=== PATIENT | female | born 1985 | race Caucasian/White ===

== ENCOUNTER → 2016-09-17 | Outpatient (CLI) | payer OTHER ==
[~2016-09-17] MED LIST: OXYC1TAB23 PO; PROT1TAB2 PO; VICO7.5T11 PO
--- NOTE | 2016-09-18 04:20 | REP ---
Clinical: Infertility . Technique: Transabdominal pelvic ultrasound followed by transvaginal examination for better evaluation of the endometrium and adnexa. Findings: Bladder is unremarkable and measures 7.3 x 7.8 x 4.6 cm . Normal anteverted uterus measures 8.5 x 3.1 x 3.9 cm. The endometrial complex measures 7.3 mm thickness. No discrete uterine or endometrial abnormalities are appreciated. Bilateral ovaries are normal in appearance. Right ovary measures 3.6 x 3.4 x 3.2 cm with 3.5 cm complex likely physiologic cyst. Left ovary measures 3.2 x 1.8 x 1.9 cm with multiple subcentimeter follicles. No pelvic fluid or adnexal mass lesion. Impression: 1. Essentially normal pelvic ultrasound. 3.5 cm complex cyst in the right ovary likely physiologic. Signed by Lane Rollins MD 09/18/2016 04:11 A
== END ==
LOC: M WHC 13:08
PROVIDERS: ATTEND Family Medicine
DX: Z31.69 Encounter for other general counseling and advice on procreation (principal); N83.201 Unspecified ovarian cyst, right side

== ENCOUNTER → 2016-12-24 | Outpatient (CLI) | payer OTHER ==
--- NOTE | 2016-12-25 03:39 | REP ---
Clinical: Upper abdominal and generalized abdominal pain. Technique: Bowles scale ultrasound using curved array transducer. Findings: The liver suggest mild fatty infiltration without focal hepatic lesion identified. The spleen and pancreas are normal in contour, size, and echogenicity without focal splenic or pancreatic lesions identified. The patient is status post cholecystectomy. No biliary ductal dilatation is appreciated, and the common bile duct measures 4.9 mm diameter. The bilateral kidneys are normal in reniform shape without hydronephrosis. Right kidney measures 12.1 x 7.2 x 3.5 cm. Left kidney measures 13.2 x 5.7 x 4.1 cm. No ascites. Visualized portions of the abdominal aorta normal. Impression: Mild fatty infiltration to the liver cannot be excluded. Prior cholecystectomy. Otherwise normal complete abdominal ultrasound. Signed by Lane Rollins MD 12/25/2016 03:31 A
== END ==
LOC: M RAD 07:02
PROVIDERS: ATTEND Physician Assistant Medical
DX: R10.10 Upper abdominal pain, unspecified (principal)

== ENCOUNTER → 2017-01-03 | Outpatient (REF) | payer OTHER | LOC: M LAB REF 19:52 | PROVIDERS: ATTEND Physician Assistant Medical | DX: R10.12 Left upper quadrant pain (principal) ==

== ENCOUNTER → 2017-01-15 | Outpatient (CLI) | payer OTHER ==
[~2017-01-15] MED LIST changes: +E-Z-GAS II EFFERVESCENT PACKET (SODIUM BICARB./CITRIC ACID/SIMETHICONE) As Ordered ONE; +E-Z-HD 98% w/w 340GM SUSP BTL As Ordered ONE; +E-Z-PAQUE 96% w/w SUSP 176GM BTL As Ordered ONE
--- NOTE | 2017-01-15 19:07 | REP ---
UPPER GI SMALL BOWEL FOLLOW THROUGH: The procedure was performed by JERMAINE Tsai under the direct supervision of Dr. Loya. All imaging was reviewed with Dr. Loya prior to dictation. The patient was able to ingest liquid barium and air in a quantity sufficient to procedure a double contrast examination. The oral and pharyngeal stages of deglutition appeared unremarkable. Esophageal transport was prompt and efficient. There is no evidence of esophagitis, stricture, or mucosal ring. A hiatal hernia was seen on imaging. Gastroesophageal reflux to approximately the level of the mala was observed during this exam. The stomach jackson were normally outlined. The rugal folds were smooth and regular. There was no evidence of gastritis, neoplasm or ulcerative disease. The duodenal jackson were normally outlined. There was no evidence of duodenitis, peptic ulcer disease or neoplasm. The visualized portion of the proximal small bowel was normal in course and caliber. Additional liquid barium was given at the end of the examination in order to perform a small bowel follow through. During fluoroscopy gentle palpation of the small bowel loops showed them to be freely movable and pliable without evidence of fixed or angulated loop. The small bowel mucosal pattern was normal in course and caliber. There was no transition to suggest a partial small bowel obstruction. Spot filming of the terminal ileum showed it to be within normal limits. IMPRESSION: Double contrast upper GI examination showing reflux to approximately the level of the mala. A hiatal hernia was also seen. Negative small bowel follow through. Fluoroscopy time was 3 minutes and 46 seconds. Reviewed by JERMAINE Tran 01/16/2017 05:36 PEdited and Signed by Hemanth Loya MD 01/17/2017 08:51 A
== END ==
LOC: M RAD 09:26
PROVIDERS: ATTEND Physician Assistant Medical
DX: R10.13 Epigastric pain (principal)

== ENCOUNTER → 2017-01-20 | Outpatient (CLI) | payer OTHER ==
[~2017-01-20] MED LIST changes: -E-Z-GAS II EFFERVESCENT PACKET (SODIUM BICARB./CITRIC ACID/SIMETHICONE) As Ordered ONE; -E-Z-HD 98% w/w 340GM SUSP BTL As Ordered ONE; -E-Z-PAQUE 96% w/w SUSP 176GM BTL As Ordered ONE
--- NOTE | 2017-01-21 09:11 | REP ---
RIGHT WRIST, FOUR VIEWS: HISTORY: Contusion. There is no acute fracture or dislocation. The joint spaces are normal in appearance. IMPRESSION: There is no acute fracture or dislocation. Signed by Zaheer Ruelas MD 01/21/2017 09:28 A
== END ==
LOC: M ADAMS 14:38
PROVIDERS: ATTEND Physician Assistant Medical
DX: S60.221A Contusion of right hand, initial encounter (principal); X58.XXXA Exposure to other specified factors, initial encounter; Y93.9 Activity, unspecified; Y92.9 Unspecified place or not applicable; Y99.8 Other external cause status

== ENCOUNTER 2017-07-26 06:48 | Day surgery (SDC) | payer OTHER ==
[~2017-07-26 06:48] MED LIST changes: -OXYC1TAB23 PO; +PROPOFOL 200 MG/20 ML VIAL As Ordered; -PROT1TAB2 PO; -VICO7.5T11 PO
[2017-07-26] MEDS: NS 1,000 ML IV (07:15)
[2017-07-26] MEDS ORDERED: LIDOCAINE 2% INJ 100 MG/5 ML SDV (FOR ANES.) As Ordered (07:57)
== END 2017-07-26 08:32 | disposition home or self-care (01) ==
LOC: M OPP 06:48
DX: R10.13 Epigastric pain (principal); K22.8 Other specified diseases of esophagus; K29.70 Gastritis, unspecified, without bleeding; K44.9 Diaphragmatic hernia without obstruction or gangrene; R19.7 Diarrhea, unspecified; K59.00 Constipation, unspecified; K21.9 Gastro-esophageal reflux disease without esophagitis; R12 Heartburn; R11.2 Nausea with vomiting, unspecified; F41.0 Panic disorder [episodic paroxysmal anxiety]; N80.9 Endometriosis, unspecified; F17.210 Nicotine dependence, cigarettes, uncomplicated; Z79.899 Other long term (current) drug therapy; Z80.8 Family history of malignant neoplasm of other organs or systems
CPT/HCPCS: 43239

== ENCOUNTER → 2017-09-14 | Outpatient (CLI) | payer OTHER | LOC: M ADAMS 11:02 | DX: M54.2 Cervicalgia (principal); M77.50 Other enthesopathy of unspecified foot and ankle | CPT/HCPCS: 72050 ==

== ENCOUNTER → 2017-10-15 | Outpatient (CLI) | payer OTHER | LOC: M ADAMS 13:52 | DX: M25.512 Pain in left shoulder (principal) | CPT/HCPCS: 73030 ==

== ENCOUNTER → 2017-12-06 | Outpatient (CLI) | payer OTHER | LOC: M PLARAD 10:27 | DX: M50.322 Other cervical disc degeneration at C5-C6 level (principal); M54.12 Radiculopathy, cervical region | CPT/HCPCS: 72141 ==

== ENCOUNTER 2017-12-23 18:00 | Emergency (ER) | payer OTHER ==
[2017-12-23] MEDS: NORCO 5/325MG TABLET (BULK FOR ED) PO (20:00)
== END 2017-12-23 20:10 | disposition home or self-care (01) ==
LOC: M ED 18:00
DX: S49.92XA Unspecified injury of left shoulder and upper arm, initial encounter (principal); W22.8XXA Striking against or struck by other objects, initial encounter; Y92.89 Other specified places as the place of occurrence of the external cause; G43.909 Migraine, unspecified, not intractable, without status migrainosus; K21.9 Gastro-esophageal reflux disease without esophagitis; M54.9 Dorsalgia, unspecified; F41.9 Anxiety disorder, unspecified; F32.9 Major depressive disorder, single episode, unspecified; F17.200 Nicotine dependence, unspecified, uncomplicated; Z79.899 Other long term (current) drug therapy
CPT/HCPCS: 73000

== ENCOUNTER → 2018-01-07 | Outpatient (CLI) | payer OTHER | LOC: M PAIN 13:15 | DX: G89.29 Other chronic pain (principal); M54.12 Radiculopathy, cervical region; M25.512 Pain in left shoulder; M50.222 Other cervical disc displacement at C5-C6 level; K21.9 Gastro-esophageal reflux disease without esophagitis; F32.9 Major depressive disorder, single episode, unspecified; F41.0 Panic disorder [episodic paroxysmal anxiety]; K44.9 Diaphragmatic hernia without obstruction or gangrene; Z79.899 Other long term (current) drug therapy; Z90.49 Acquired absence of other specified parts of digestive tract; Z87.891 Personal history of nicotine dependence | CPT/HCPCS: G0463 ==

== ENCOUNTER → 2018-04-11 | Outpatient (CLI) | payer OTHER ==
[~2018-04-11] MED LIST changes: +CONRAY-43 43% 50ML VIAL (Q9960) As Ordered; +PROHANCE 279.3MG/ML 5ML VIAL (A9576) As Ordered; -PROPOFOL 200 MG/20 ML VIAL As Ordered
== END ==
LOC: M RADPRO 06:54
DX: M25.512 Pain in left shoulder (principal)
CPT/HCPCS: 23350

== ENCOUNTER → 2018-07-02 | Outpatient (REF) ==
[~2018-07-02] MED LIST changes: +AMIT50TA PO; -CONRAY-43 43% 50ML VIAL (Q9960) As Ordered; +MELA2.5C3 PO; +MELA3TAB PO; +NORCOTAB PO; +OXYC1TAB23 PO; +PREG100CA PO; -PROHANCE 279.3MG/ML 5ML VIAL (A9576) As Ordered; +PROT1TAB2 PO; +VALI10TA PO; +VICO7.5T11 PO
--- NOTE | 2018-07-03 02:56 | REP ---
Clinical: Back pain . Technique: AP, lateral, and coned-down views. Findings: Alignment and lordosis is maintained. The vertebral bodies including transverse process and spinous processes are intact and normal. There is no evidence for acute fracture / compression injury or subluxation. No evidence for spondylolysis or spondylolisthesis. No significant degenerative change is noted. Impression: Age-appropriate lumbosacral spine radiograph series. If the patient remains symptomatic consider MRI for further investigation. Electronically Signed by Lane Rollins MD 07/03/2018 02:47 A
--- NOTE | 2018-07-03 04:16 | REP ---
Clinical: Pain Technique: AP, lateral, bilateral oblique and sunrise views left knee . Findings: The osseous structures and joint spaces are intact and normal. There is no evidence for acute fracture or dislocation. No joint effusion is appreciated. Surrounding soft tissues are unremarkable. No subcutaneous emphysema or radiodense foreign body. Impression: Normal examination. No significant degenerative changes noted by radiographic evaluation. Electronically Signed by Lane Rollins MD 07/03/2018 04:07 A
== END ==
LOC: M SMT 14:45
PROVIDERS: ATTEND Internal Medicine
DX: Z02.71 Encounter for disability determination (principal)

== ENCOUNTER 2018-07-16 09:08 | Day surgery (SDC) | payer OTHER ==
[~2018-07-16] VITALS: Ht 162.6 cm; Wt 120.6 kg
[~2018-07-16 09:08] MED LIST changes: +LIDOCAINE 2% INJ 100 MG/5 ML SDV (FOR ANES.) As Ordered ONE; +LR 1,000 ML IV ONE; +MIDAZOLAM INJ 2 MG/2 ML VIAL (J2250) As Ordered ONE; +ONDANSETRON 4MG/2ML VIAL (J2405) As Ordered ONE; +dexameTHASONE 4 MG/ML 1ML VIAL (J1100) As Ordered ONE; +fentaNYL 100 MCG/2 ML INJECTION (J3010) As Ordered ONE
[2018-07-16] MEDS ORDERED: LIDOCAINE 1% MDV 20ML VIAL ONE (09:09)
[2018-07-16] MEDS ORDERED: MIDAZOLAM INJ 2 MG/2 ML VIAL (J2250) As Ordered ONE (09:30)
[2018-07-16] MEDS ORDERED: fentaNYL 100 MCG/2 ML INJECTION (J3010) As Ordered ONE ×2 (09:30→11:31)
[2018-07-16] MEDS ORDERED: BUPIVACAINE HCL 0.25% 30 ML VIAL As Ordered ONE ×2 (09:30→13:11)
[2018-07-16 09:36] LABS: URINE PREG TEST NEGATIVE (NEGATIVE)
[2018-07-16] MEDS ORDERED: PROPOFOL 200 MG/20 ML VIAL As Ordered ONE (09:48)
[2018-07-16] MEDS ORDERED: ROCURONIUM BROMIDE 50 MG/5 ML VIAL As Ordered ONE ×2 (09:48→10:55)
[2018-07-16] MEDS ORDERED: LIDOCAINE 1% MDV 20ML VIAL As Ordered ONE (09:51)
[2018-07-16] MEDS ORDERED: EPINEPHrine INJ 1 MG/ML 1ML AMP As Ordered ONE (09:51)
[2018-07-16] MEDS ORDERED: GABA-843 PO (09:52)
[2018-07-16] MEDS ORDERED: MIDAZOLAM INJ 2 MG/2 ML VIAL (J2250) IV ONE (10:15)
[2018-07-16] MEDS ORDERED: fentaNYL 100 MCG/2 ML INJECTION (J3010) IV ONE (10:15)
[2018-07-16] MEDS ORDERED: ceFAZolin 1GM INJ (J0690 PER 500MG) As Ordered ONE (10:36)
[2018-07-16] MEDS ORDERED: SUGAMMADEX SODIUM 500 MG/5 ML VIAL (BRIDION) As Ordered ONE (11:18)
[2018-07-16] MEDS ORDERED: HYDROmorphone HCL 2 MG/ML 1ML VIAL (J1170) As Ordered ONE (12:04)
[2018-07-16] MEDS ORDERED: KETOROLAC 60 MG/2 ML VIAL (J1885) As Ordered ONE (12:40)
[2018-07-16] MEDS ORDERED: LR 1,000 ML IV SCH (14:00)
[2018-07-16] MEDS: fentaNYL 100 MCG/2 ML INJECTION (J3010) IV PRN ×4 (14:05→14:20)
[2018-07-16] MEDS ORDERED: PERCOCET 5MG/325MG TAB As Ordered ONE (14:53)
[2018-07-16] MEDS: PERCOCET 5MG/325MG TAB PO PRN ×2 (14:55→15:40)
[2018-07-16] MEDS: HYDROMORPHONE HCL 0.5 MG/ 0.5 ML SYRINGE (J1170 PER 1) IV PRN ×2 (14:55→15:10)
[2018-07-16] MEDS ORDERED: HYDROMORPHONE HCL 0.5 MG/ 0.5 ML SYRINGE (J1170 PER 1) As Ordered ONE (15:06)
[2018-07-16] MEDS ORDERED: METOCLOPRAMIDE INJ 10MG/2ML VIAL (J2765) IV ONE (16:00)
[2018-07-16] MEDS ORDERED: ONDANSETRON 4MG/2ML VIAL (J2405) IV ONE (16:00)
[2018-07-16 16:20] VITALS: BP 117/57
--- NOTE | 2018-07-17 11:40 | RO ---
DATE OF STUDY: 07/16/2018 PREOPERATIVE DIAGNOSES: 1. Left shoulder instability. 2. Left shoulder impingement. 3. Left shoulder acromioclavicular joint arthritis. POSTOPERATIVE DIAGNOSES: 1. Left shoulder instability. 2. Left shoulder partial thickness rotator cuff tear. 3. Left shoulder impingement. 4. Left shoulder acromioclavicular (AC) joint arthritis. PROCEDURES: 1. Left shoulder arthroscopic anterior and posterior labral repair. 2. Left shoulder arthroscopic rotator cuff debridement. 3. Left shoulder subacromial decompression. 4. Left shoulder arthroscopic distal clavicle excision. SURGEON: Harmeet Blackwell MD PROJECT ECONOMIST: Britney Wagner PA-C ANESTHESIA: General with preoperative nerve block. INTRAVENOUS (IV) FLUIDS: Lactated Ringer. ESTIMATED BLOOD LOSS: 5 mL. IMPLANTS: Arthrex 2.9 mm PushLock anchor with labral tape times two and Arthrex 3-mm knotless suture tack times one. CLOSURE: Nylon. DESCRIPTION OF PROCEDURE: The patient identified in the preoperative holding area. The left shoulder was marked by me. She had an interscalene nerve block. She was brought the operating room and placed supine on a well-padded operating room (OR) table. Examination of the left shoulder revealed 170 degrees of passive forward flexion, 90 degrees of external rotation with arm at her side. She has a grade 2 plus anterior grade 2 posterior load and shift. This patient was then placed into the [id number] lateral decubitus position with an axillary roll, bilateral Venodyne boots for deep venous thrombosis (DVT) prophylaxis, and all bony prominences well padded. The left arm was placed into the Arthrex STaR (Shoulder Traction and Rotation) Sleeve lateral decubitus traction device with 10 pounds of traction. The left shoulder was then prepped and draped in normal sterile fashion with Chloraprep. She received appropriate intravenous (IV) antibiotics within 1 hour of incision. Prior to incision, time-out was performed per hospital protocol. Rhianna was present for the entire procedure and participated all essential portions of the procedure. This was especially important to the patient's morbid obesity and needing to use longer cannulas. Rhianna assisted with positioning and draping, holding the arthroscope, retrieving suture, manipulating the arm, and assisting with traction and the wound closure. Prior to incision, time-out performed per hospital protocol. An accessory lateral portal was made due to the patient's body habitus. A 30-degree arthroscope introduced into the joint atraumatically. Diagnostic arthroscopy revealed grade 1 chondromalacia in the glenoid and the humeral head. There was a partial articular tear of the supraspinatus. Posterior rotator cuff intact. Subscapularis was intact. Biceps appeared unremarkable. The anterior inferior labrum was significantly deficient. Appeared that there may have been a prior tear that had scarred in medially. The humeral head was noted to be sitting inferiorly and slightly anteriorly subluxated. An anterior working portal was established through the rotator interval to give an appropriate angle to drill for anterior anchors. The switching stick was used to palpate the anterior inferior labrum, where there was noted to be a fissure almost consistent with an anterior version of a Alicia lesion. I created an accessory superolateral portal also through the rotator interval just posterior to the biceps. Hooked cautery was used to develop the plane between labrum and articular cartilage in the anterior inferior quadrant. Labral elevators were then used to release the capsule off the anterior glenoid in a subperiosteal fashion. Next, I drilled and placed a 3-mm knotless suture tack at the 7:30 position. A suture lasso was used to shuttle suture through the anterior inferior labrum, including large grasp of capsule. Sutures were shuttled per routine for a knotless suture tack, and then my quality control assistant applied posterior vector to the proximal humerus as the final suture was tensioned, which nicely advanced the anterior inferior labrum onto the glenoid. The suture cut with arthroscopic molded rubber goods cutter. I then used the suture lasso to shuttle a labral tape through capsule and labrum further superior. This was loaded through 2.9-mm PushLock. Appropriate drill used to create a socket in the glenoid. This was at the 8:30 position, and the suture was tensioned. The anchor was advanced by hand and then malleted per routine. The suture was cut with arthroscopic molded rubber goods cutter. This nicely restored the bumper effect. Next, the scope was placed in the anterior superior portal down. Now, the humeral head was centrally located on the glenoid, and I was no longer subluxated inferiorly. The patient had had symptoms of posterior and inferior instability preoperatively, intraoperatively. There is no tearing of the posterior labrum create an inferior to superior shift. I elected to place one anchor posteriorly, mostly based on her preoperative symptoms and her examination under anesthesia. The percutaneous labral repair kit was used to obtain a better trajectory for drilling at the posterior inferior glenoid. The largest cannula available was then placed. Suture lasso was used to shuttle labral tape through the posterior inferior labrum and capsule. Those loaded through a PushLock anchor, then drilled, and placed the anchor by hand per routine. This was malleted in with great fixation. That anchor was placed around the 4:30 position. This created a nice balanced anterior and posterior labral repair with an inferior to superior shift. The shoulder was irrigated and drained. Chondroplasty of the glenoid. I should mention that I did perform a rotator cuff debridement with the shaver. I would estimate this to be approximately at 15% to 20% partial articular tear of the supraspinatus. Arthroscope was placed into the subacromial space. There was moderate bursitis. I performed a bursectomy with the shaver and cautery through a lateral portal. No significant bursal-sided rotator cuff tearing appreciated. Cautery was then used through the anterior portal to clear out soft tissue from the AC joint. The AC joint was noted to be severely narrowed in the posterior half. A bur was then used through the anterior portal to remove approximately 6 mm to the distal clavicle. Arthroscope was intermittently placed into the anterior portal to get a direct view and ensure that no posterior or superior bone was remaining. The shoulder was then irrigated and drained. Portals closed with nylon suture. Bulky sterile dressing was applied. She was carefully positioned into an R2 pillow with her shoulder in the gunslinger position. She was extubated, transferred to the postanesthesia care unit (PACU) in stable condition. All counts correct times two. COMPLICATIONS: None.
== END 2018-07-16 16:25 | disposition home or self-care (01) ==
LOC: M SDC 09:08
PROVIDERS: ATTEND Orthopaedic Surgery
DX: M25.312 Other instability, left shoulder (principal); M75.42 Impingement syndrome of left shoulder; M75.112 Incomplete rotator cuff tear or rupture of left shoulder, not specified as traumatic; M19.012 Primary osteoarthritis, left shoulder; K21.9 Gastro-esophageal reflux disease without esophagitis; F41.9 Anxiety disorder, unspecified; F32.9 Major depressive disorder, single episode, unspecified; E66.9 Obesity, unspecified; Z68.42 Body mass index [BMI] 45.0-49.9, adult
CPT/HCPCS: 29806; 29824; 29826; 64415; 84703; C1713; J0690; J1100; J1170; J1885; J2250; J2405; J3010

== ENCOUNTER 2018-10-22 09:02 | Outpatient (RCR) | payer OTHER ==
[~2018-10-22 09:02] MED LIST changes: +GABA-843 PO; +HYDR-3715 PO; -LIDOCAINE 2% INJ 100 MG/5 ML SDV (FOR ANES.) As Ordered ONE; -LR 1,000 ML IV ONE; -MIDAZOLAM INJ 2 MG/2 ML VIAL (J2250) As Ordered ONE; -NORCOTAB PO; -ONDANSETRON 4MG/2ML VIAL (J2405) As Ordered ONE; -dexameTHASONE 4 MG/ML 1ML VIAL (J1100) As Ordered ONE; -fentaNYL 100 MCG/2 ML INJECTION (J3010) As Ordered ONE
== END 2018-10-24 ==
LOC: M PT 09:02
PROVIDERS: ATTEND Orthopaedic Surgery
DX: M75.112 Incomplete rotator cuff tear or rupture of left shoulder, not specified as traumatic (principal)

== ENCOUNTER 2018-11-18 11:27 | Outpatient (RCR) | payer OTHER | END 2018-11-23 | LOC: M PT 11:27 | PROVIDERS: ATTEND Orthopaedic Surgery | DX: M75.122 Complete rotator cuff tear or rupture of left shoulder, not specified as traumatic (principal) ==

== ENCOUNTER 2018-12-22 07:57 | Outpatient (RCR) | payer OTHER | END 2018-12-24 | LOC: M PT 07:57 | PROVIDERS: ATTEND Orthopaedic Surgery | DX: Z47.89 Encounter for other orthopedic aftercare (principal); M75.112 Incomplete rotator cuff tear or rupture of left shoulder, not specified as traumatic ==

== ENCOUNTER 2019-01-04 13:01 | Emergency (ER) | payer OTHER ==
[~2019-01-04] VITALS: Ht 162.6 cm; Wt 120.5 kg
[2019-01-04 13:01] VITALS: BP 143/105
[~2019-01-04 13:01] MED LIST changes: -GUAN1TAB16 PO; -PERC5TAB12 PO; -ZOFR4TAB16 PO
[2019-01-04] MEDS ORDERED: GUAN1TAB16 PO (13:05)
[2019-01-04] MEDS ORDERED: METOCLOPRAMIDE INJ 10MG/2ML VIAL (J2765) IV ONE (13:45)
[2019-01-04] MEDS ORDERED: KETOROLAC 30 MG/ML VIAL (J1885) IV ONE (13:45)
[2019-01-04] MEDS ORDERED: MORPHINE 2 MG/ML 1ML SYRINGE (J2270) IV ONE (13:45)
[2019-01-04] MEDS ORDERED: NS 1,000 ML IV SCH (13:45)
[2019-01-04 13:58] LABS: BASO # 0.1 10^3/uL (0.0-0.2); BASO % 0.5 % (0.0-1.0); EOS # 0.1 10^3/uL (0.0-0.50); HEMATOCRIT 40.9 % (36.0-47.0); HEMOGLOBIN 13.9 g/dl (12.0-15.5); LYMPH # 1.9 10^3/uL (1.5-4.5); LYMPH % 14.5 % (24.0-44.0); MEAN CORPUSCULAR HEMOGLOBIN 28.1 pg (27.0-33.0); MEAN CORPUSCULAR VOLUME 82.8 fl (80.0-96.0); MONO # 0.6 10^3/uL (0.0-0.8); MONO % 4.2 % (0.0-5.0); NEUTROPHILS # 10.6 10^3/uL (1.8-7.7); NEUTROPHILS % 79.5 % (36.0-66.0); PLATELET COUNT, AUTOMATED 418 10^3/uL (150-450); RED BLOOD COUNT 4.94 10^6/uL (4.00-5.40); WHITE BLOOD COUNT 13.3 10^3/uL (4.0-10.0)
[2019-01-04 14:20] LABS: ALBUMIN 3.8 GM/DL (3.2-5.2); ALT/SGPT 28 U/L (12-78); BILIRUBIN,DIRECT < 0.1 MG/DL (0.0-0.2); BILIRUBIN,TOTAL 0.3 MG/DL (0.2-1.0); BLOOD UREA NITROGEN 13 MG/DL (7-18); CALCIUM LEVEL 9.5 MG/DL (8.5-10.1); CARBON DIOXIDE LEVEL 24 MEQ/L (21-32); CHLORIDE LEVEL 105 MEQ/L (98-107); CREATININE FOR GFR 0.87 MG/DL (0.55-1.30); GLOMERULAR FILTRATION RATE > 60.0 (>60); GLUCOSE, FASTING 117 MG/DL (70-100); LIPASE 174 U/L (73-393); POTASSIUM SERUM 4.1 MEQ/L (3.5-5.1); SODIUM LEVEL 136 MEQ/L (136-145); TOTAL PROTEIN 8.3 GM/DL (6.4-8.2)
--- NOTE | 2019-01-04 14:59 | REP ---
HISTORY: Renal colic. COMPARISON: Contrast enhanced examination 09/19/2014. The patient is status post cholecystectomy since that prior exam. At the level of the ureterovesical junction on the left there is a 4 mm sized calcification consistent with a distal ureterolith. This is causing mild hydronephrosis and hydroureter with mild periureteral edema. There are no nephroliths. The right kidney and collecting system is normal. There are bilateral pelvic phleboliths, status quo. Limited evaluation of the intraabdominal and intrapelvic bowel loops and their mesenteries show no gross abnormalities. There is no free fluid or free air in the abdomen or pelvis. Limited evaluation of the liver, spleen, pancreas, and adrenal glands show no gross abnormalities or significant changes from the prior exam. Limited evaluation of the abdominal aorta and periaortic regions show no gross abnormalities or significant changes from the prior exam. Seen in the right hemipelvis, there is an oval shaped 2.7 cm sized low density structure possibly representing a small right ovarian cyst. Bone window technique the examination shows the osseous structures to be within normal limits. IMPRESSION: 1. Distal left ureterolith with resultant findings as described above. 2. Possible small right ovarian cyst. Electronically Signed by Hakeem Guillermo DO 01/04/2019 04:03 P
[2019-01-04] MEDS ORDERED: ZOFR4TAB16 PO (15:04)
[2019-01-04] MEDS ORDERED: PERC5TAB12 PO (15:04)
== END 2019-01-04 15:26 | disposition home or self-care (01) ==
LOC: M ED 13:01
DX: N21.1 Calculus in urethra (principal); K21.9 Gastro-esophageal reflux disease without esophagitis; Z79.899 Other long term (current) drug therapy
CPT/HCPCS: 74176; 80048; 80076; 81001; 83690; 84702; 85025; 96374; 96375; 99284; J1885; J2270; J2765

== ENCOUNTER → 2019-01-04 | Outpatient (REF) | payer OTHER ==
[~2019-01-04] MED LIST changes: +GUAN1TAB16 PO; +PERC5TAB12 PO; +ZOFR4TAB16 PO
== END ==
LOC: M LAB REF 09:35
PROVIDERS: ATTEND Physician Assistant Medical
DX: N39.0 Urinary tract infection, site not specified (principal)

== ENCOUNTER 2019-01-19 07:59 | Outpatient (RCR) | payer OTHER ==
[~2019-01-19 07:59] MED LIST changes: +GUAN1TAB16 PO; +PERC5TAB12 PO; +ZOFR4TAB16 PO
== END 2019-01-24 ==
LOC: M PT 07:59
PROVIDERS: ATTEND Orthopaedic Surgery
DX: Z47.89 Encounter for other orthopedic aftercare (principal); M75.112 Incomplete rotator cuff tear or rupture of left shoulder, not specified as traumatic

== ENCOUNTER → 2019-01-25 | Outpatient (CLI) | payer OTHER ==
[~2019-01-25] MED LIST changes: -MELA3TAB PO; +MELA3TAB63 PO; -VICO7.5T11 PO; +VICO7.5T12 PO
--- NOTE | 2019-01-25 13:49 | REP ---
Clinical: Coccydynia Technique: AP, angled, and lateral views of the sacrum and coccyx. Findings: The bilateral sacroiliac joints are symmetric and normal. The sacrum and coccyx appear normal. Impression: Normal examination. Electronically Signed by Lane Rolilns MD 01/25/2019 01:40 P
== END ==
LOC: M ADAMS 13:21
PROVIDERS: ATTEND Physician Assistant Medical
DX: M53.3 Sacrococcygeal disorders, not elsewhere classified (principal)

== ENCOUNTER 2019-02-16 08:00 | Outpatient (RCR) | payer OTHER | END 2019-02-23 | LOC: M PT 08:00 | PROVIDERS: ATTEND Orthopaedic Surgery | DX: Z47.89 Encounter for other orthopedic aftercare (principal); Z98.890 Other specified postprocedural states; M25.512 Pain in left shoulder ==

== ENCOUNTER 2019-03-10 08:11 | Outpatient (RCR) | payer OTHER | END 2019-03-26 | LOC: M PT 08:11 | PROVIDERS: ATTEND Orthopaedic Surgery | DX: M75.112 Incomplete rotator cuff tear or rupture of left shoulder, not specified as traumatic (principal); Z47.89 Encounter for other orthopedic aftercare ==

== ENCOUNTER → 2019-05-05 | Outpatient (CLI) | payer OTHER ==
--- NOTE | 2019-05-05 17:47 | REP ---
Four views left foot: 05/05/2019. Indication: Left foot pain. Comparison: None. Findings: There is no acute fracture, subluxation or dislocation. No lytic or blastic lesions are present within the visualized bones. No significant focal soft tissue abnormalities are detected. Impression: No acute osseous injury of the left foot. Electronically Signed by Kwesi Clayton DO 05/05/2019 05:38 P
--- NOTE | 2019-05-05 19:22 | REP ---
Two-view chest: 05/05/2019. Indication: Cough. Comparison: 11/17/2015. Findings: The lungs are clear. There is no pleural effusion or pneumothorax. The cardiomediastinal silhouette is unremarkable. Impression: No acute cardiopulmonary process. Electronically Signed by Kwesi Clayton DO 05/05/2019 07:14 P
== END ==
LOC: M ADAMS 16:49
PROVIDERS: ATTEND Physician Assistant Medical
DX: R05 Cough (principal); M72.2 Plantar fascial fibromatosis

== ENCOUNTER → 2019-05-05 | Outpatient (REF) | payer OTHER ==
[2019-05-05 19:51] LABS: ALBUMIN 3.9 GM/DL (3.2-5.2); ALT/SGPT 33 U/L (12-78); BASO # 0.1 10^3/uL (0.0-0.2); BASO % 0.7 % (0.0-1.0); BILIRUBIN,TOTAL 0.3 MG/DL (0.2-1.0); BLOOD UREA NITROGEN 9 MG/DL (7-18); CALCIUM LEVEL 9.3 MG/DL (8.5-10.1); CARBON DIOXIDE LEVEL 28 MEQ/L (21-32); CHLORIDE LEVEL 105 MEQ/L (98-107); CREATININE FOR GFR 0.91 MG/DL (0.55-1.30); EOS # 0.1 10^3/uL (0.0-0.5); EOS % 1.1 % (0.0-3.0); FREE T3 2.6 PG/ML (2.2-4.0); FREE T4 0.93 NG/DL (0.76-1.46); GLOMERULAR FILTRATION RATE > 60.0 (>60); GLUCOSE, FASTING 80 MG/DL (70-100); HEMATOCRIT 41.1 % (36.0-47.0); HEMOGLOBIN 13.4 g/dl (12.0-15.5); LYMPH # 2.9 10^3/uL (1.5-5.0); LYMPH % 28.9 % (24.0-44.0); MEAN CORPUSCULAR HEMOGLOBIN 27.8 pg (27.0-33.0); MEAN CORPUSCULAR HGB CONC 32.6 g/dl (32.0-36.5); MEAN CORPUSCULAR VOLUME 85.3 fl (80.0-96.0); MONO # 0.5 10^3/uL (0.0-0.8); MONO % 4.5 % (0.0-5.0); NEUTROPHILS # 6.6 10^3/uL (1.5-8.5); NEUTROPHILS % 64.6 % (36.0-66.0); PLATELET COUNT, AUTOMATED 474 10^3/uL (150-450); POTASSIUM SERUM 3.8 MEQ/L (3.5-5.1); RED BLOOD COUNT 4.82 10^6/uL (4.00-5.40); RHEUMATOID FACTOR QUANT < 10.0 IU/ML (<15.0); SODIUM LEVEL 139 MEQ/L (136-145); WHITE BLOOD COUNT 10.2 10^3/uL (4.0-10.0)
[2019-05-05 19:52] LABS: TOTAL 25(OH) VITAMIN D 10.5 NG/ML (30.0-100.0)
== END ==
LOC: M LABDRWAD 19:17
PROVIDERS: ATTEND Nurse Practitioner Pediatrics
DX: F41.1 Generalized anxiety disorder (principal); F41.0 Panic disorder [episodic paroxysmal anxiety]; F33.1 Major depressive disorder, recurrent, moderate; E66.9 Obesity, unspecified

== ENCOUNTER → 2019-07-25 | Outpatient (CLI) | payer OTHER ==
--- NOTE | 2019-07-25 16:02 | REPVR ---
PROCEDURE INFORMATION: Exam: MR Pelvis Without Contrast Exam date and time: 07/25/2019 2:42 PM Age: 33 years old Clinical indication: Other: Sacral; Patient HX: Pain in sacrum, that radiates into upper portion of lower-mid back for several months, nki, xrays on pacs; Additional info: Sacrococcygeal disorders TECHNIQUE: Imaging protocol: Magnetic resonance images of the pelvis without intravenous contrast. COMPARISON: CT ABD PELVIS W/O CONTRAST 01/04/2019 2:12 PM FINDINGS: Intraperitoneal space: Small free fluid in the pelvis is not clearly outside physiologic limits. Reproductive: There are bilateral ovarian follicles, with the left ovary containing a cyst measuring up to 2.5 cm. There is a cluster of cystic appearing foci in the upper aspect of the cervix, likely nabothian cysts, but with somewhat high extension to the lower margin of the uterus. Bones/joints: The sacroiliac joints are patent. There is no significant effusion within them. There is no significant erosion or edema about them. The visualized marrow, including of the sacrum, is normal in signal. Soft tissues: There is no significant presacral soft tissue edema. Minor subcutaneous edema is present posteriorly without discrete collection. The musculature appears unremarkable. The visualized courses of the sciatic nerves appear unremarkable. IMPRESSION: 1. No abnormality of the sacrum identified. 2. Cluster of cystic appearing foci in the upper cervix, likely nabothian cysts, both somewhat high extension to the lower margin of the uterus. Recommend pelvic ultrasound for confirmation. 3. Left ovarian cyst measuring up to 2.5 cm. Electronically signed by: Jadyon Calderón On 07/25/2019 16:01:56 PM
== END ==
LOC: M RAD 13:43
PROVIDERS: ATTEND Physician Assistant
DX: M53.3 Sacrococcygeal disorders, not elsewhere classified (principal); N83.202 Unspecified ovarian cyst, left side

== ENCOUNTER → 2019-12-24 | Outpatient (REF) | payer BC, OTHER ==
[2020-01-21 22:24] LABS: BACTERIA, URINE AUTO NEGATIVE (NEGATIVE); RBC, URINE AUTO 0 /HPF (0-3); SQUAMOUS EPITHELIAL CELL UR AU 1 /HPF (0-6); WBC, URINE AUTO 2 /HPF (0-3)
== END ==
LOC: M LAB REF 16:56
PROVIDERS: ATTEND Physician Assistant
DX: M54.9 Dorsalgia, unspecified (principal); R10.11 Right upper quadrant pain

== ENCOUNTER → 2020-05-02 | Outpatient (CLI) | payer BC ==
[~2020-05-02] MED LIST changes: -MELA3TAB63 PO; +MELA3TAB70 PO
--- NOTE | 2020-05-02 11:51 | REP ---
INDICATION: COUGH. COMPARISON: Comparison chest x-ray May 05, 2019. TECHNIQUE: Two views.. FINDINGS: The lungs are well inflated and free of infiltrate. The pleural angles are sharp. The heart size is normal. Pulmonary vasculature is not increased. No significant bony abnormality is seen. IMPRESSION: Negative chest x-ray. <Electronically signed by Kevin Loya > 05/02/20 [id number]
== END ==
LOC: M ADAMS 07:55
PROVIDERS: ATTEND Family Medicine
DX: R05 Cough (principal)

== ENCOUNTER → 2020-05-02 | Outpatient (REF) | payer BC ==
[2020-05-02 13:15] LABS: BASO # 0.1 10^3/uL (0.0-0.2); BASO % 0.7 % (0.0-1.0); EOS # 0.2 10^3/uL (0.0-0.5); EOS % 1.5 % (0.0-3.0); HEMATOCRIT 41.6 % (36.0-47.0); HEMOGLOBIN 12.9 g/dl (12.0-15.5); LYMPH % 36.4 % (24.0-44.0); MEAN CORPUSCULAR HEMOGLOBIN 26.5 pg (27.0-33.0); MEAN CORPUSCULAR VOLUME 85.6 fl (80.0-96.0); MONO # 0.7 10^3/uL (0.0-0.8); MONO % 5.9 % (0.0-5.0); NEUTROPHILS # 6.1 10^3/uL (1.5-8.5); NEUTROPHILS % 55.2 % (36.0-66.0); PLATELET COUNT, AUTOMATED 378 10^3/uL (150-450); RED BLOOD COUNT 4.86 10^6/uL (4.00-5.40); WHITE BLOOD COUNT 11.1 10^3/uL (4.0-10.0)
[2020-05-02 13:51] LABS: ALBUMIN 3.2 GM/DL (3.2-5.2); ALT/SGPT 48 U/L (12-78); BILIRUBIN,TOTAL 0.3 MG/DL (0.2-1.0); BLOOD UREA NITROGEN 12 MG/DL (7-18); CALCIUM LEVEL 8.9 MG/DL (8.5-10.1); CARBON DIOXIDE LEVEL 23 MEQ/L (21-32); CHLORIDE LEVEL 106 MEQ/L (98-107); GLOMERULAR FILTRATION RATE > 60.0 (>60); GLUCOSE, FASTING 100 MG/DL (70-100); POTASSIUM SERUM 4.2 MEQ/L (3.5-5.1); SODIUM LEVEL 140 MEQ/L (136-145); TOTAL PROTEIN 7.4 GM/DL (6.4-8.2)
== END ==
LOC: M SFHCADAM 07:54
PROVIDERS: ATTEND Family Medicine
DX: Z00.00 Encounter for general adult medical examination without abnormal findings (principal)

== ENCOUNTER → 2020-05-31 | Outpatient (CLI) | payer BC | LOC: M LABSMTC 12:15 | PROVIDERS: ATTEND Family Medicine | DX: Z20.822 Contact with and (suspected) exposure to COVID-19 (principal) ==

== ENCOUNTER → 2020-07-21 | Outpatient (CLI) | payer BC ==
[~2020-07-21] MED LIST changes: +GABA-282 PO; -GABA-843 PO; -MELA2.5C3 PO; +MELA2.5C4 PO
--- NOTE | 2020-07-21 09:24 | PFTRPT ---
Height: 64.00 Inches Weight: 291.00 Lbs BSA: 2.29 Diagnosis: R05 DATE: 07/21/2020 ORDERING PHYSICIAN: Joan Reyes NP Pre and post bronchodilator studies have excellent technical quality. Forced vital capacity is normal. FEV1 is in proportion. Obstructive index is therefore normal. Expiratory limit of the flow-volume loop is normal. No significant bronchodilator response is identified. Total lung capacity is normal. Residual volume is in proportion. Diffusing capacity is normal. Hemoglobin is acceptable at 12.7. Airway resistance and conductance are normal. IMPRESSION: Normal study. MTDD
== END ==
LOC: M CARPUL 08:41
PROVIDERS: ATTEND Nurse Practitioner Adult Health
DX: R05 Cough (principal)

== ENCOUNTER → 2020-08-18 | Outpatient (CLI) | payer BC ==
--- NOTE | 2020-08-18 17:56 | REP ---
INDICATION: COUGH. COMPARISON: None. TECHNIQUE: CT chest performed without the use of intravenous contrast. Sagittal and coronal reconstruction images are performed. FINDINGS: Lungs: Clear, no infiltrate. Two calcified granulomas are seen in the right upper lobe. Mediastinum: 2 calcified lymph nodes are seen along the right side of the trachea.. Priya: 2 small calcified lymph nodes are seen in the right hilum.. Axilla: No gross adenopathy. Pleura: No effusion. Heart: Not enlarged. Thoracic aorta: No aneurysm. Upper abdominal structures: There is a calcified granuloma in the spleen. There has been a prior cholecystectomy. Visualized osseous structures: Unremarkable. IMPRESSION: There is evidence of prior granulomatous disease, otherwise unremarkable noncontrast CT chest. <Electronically signed by Mitch Bowles > 08/18/20 [id number]
== END ==
LOC: M RAD 16:05
PROVIDERS: ATTEND Nurse Practitioner Adult Health
DX: R05 Cough (principal); Z90.49 Acquired absence of other specified parts of digestive tract

== ENCOUNTER → 2020-12-16 | Outpatient (REF) | payer BC ==
[2020-12-16 18:22] LABS: BLOOD UREA NITROGEN 10 MG/DL (7-18); CALCIUM LEVEL 9.6 MG/DL (8.5-10.1); CARBON DIOXIDE LEVEL 28 MEQ/L (21-32); CHLORIDE LEVEL 107 MEQ/L (98-107); CREATININE FOR GFR 0.94 MG/DL (0.55-1.30); FREE T4 1.07 NG/DL (0.76-1.46); GLOMERULAR FILTRATION RATE > 60.0 (>60); GLUCOSE, FASTING 193 MG/DL (70-100); NT-PRO BNP 46 PG/ML (<125); SODIUM LEVEL 144 MEQ/L (136-145)
== END ==
LOC: M SFHCPLAZ 14:33 → M SFHCADAM 14:36
PROVIDERS: ATTEND Family Medicine
DX: R06.00 Dyspnea, unspecified (principal); J84.10 Pulmonary fibrosis, unspecified; R79.89 Other specified abnormal findings of blood chemistry; Z87.09 Personal history of other diseases of the respiratory system

== ENCOUNTER → 2021-08-16 | Outpatient (REF) | payer BC ==
[~2021-08-16] MED LIST changes: +DIAZ10TA2 PO; +EXCETAB33 PO; +VITA100093 PO
[2021-08-16 17:17] LABS: ALBUMIN 3.6 GM/DL (3.2-5.2); ALT/SGPT 44 U/L (12-78); BILIRUBIN,TOTAL 0.2 MG/DL (0.2-1.0); BLOOD UREA NITROGEN 7 MG/DL (7-18); CALCIUM LEVEL 9.5 MG/DL (8.5-10.1); CARBON DIOXIDE LEVEL 28 MEQ/L (21-32); CHLORIDE LEVEL 107 MEQ/L (98-107); CREATININE FOR GFR 0.75 MG/DL (0.55-1.30); GLOMERULAR FILTRATION RATE > 60.0 (>60); GLUCOSE, FASTING 131 MG/DL (70-100); NT-PRO BNP 42 PG/ML (<125); POTASSIUM SERUM 4.1 MEQ/L (3.5-5.1); SODIUM LEVEL 141 MEQ/L (136-145); TOTAL PROTEIN 7.7 GM/DL (6.4-8.2)
== END ==
LOC: M SFHCADAM 12:27
PROVIDERS: ATTEND Family Medicine
DX: R60.9 Edema, unspecified (principal)

== ENCOUNTER → 2021-08-31 | Outpatient (REF) | payer BC ==
[2021-08-31 13:37] LABS: BASO # 0.1 10^3/uL (0.0-0.2); BASO % 0.8 % (0.0-1.0); EOS # 0.2 10^3/uL (0.0-0.5); HEMATOCRIT 39.8 % (36.0-47.0); HEMOGLOBIN 12.9 g/dl (12.0-15.5); LYMPH # 2.4 10^3/uL (1.5-5.0); LYMPH % 31.6 % (24.0-44.0); MEAN CORPUSCULAR HEMOGLOBIN 27.2 pg (27.0-33.0); MEAN CORPUSCULAR HGB CONC 32.4 g/dl (32.0-36.5); MEAN CORPUSCULAR VOLUME 83.8 fl (80.0-96.0); MONO # 0.4 10^3/uL (0.0-0.8); MONO % 5.4 % (2.0-8.0); NEUTROPHILS # 4.5 10^3/uL (1.5-8.5); NEUTROPHILS % 59.8 % (36.0-66.0); PLATELET COUNT, AUTOMATED 374 10^3/uL (150-450); RED BLOOD COUNT 4.75 10^6/uL (4.00-5.40); WHITE BLOOD COUNT 7.4 10^3/uL (4.0-10.0)
[2021-08-31 13:50] LABS: FREE T4 1.14 NG/DL (0.76-1.46); THYROID STIMULATING HORMONE 4.07 uIU/ML (0.358-3.740)
== END ==
LOC: M LABDRWAD 13:07
PROVIDERS: ATTEND Specialist
DX: N92.6 Irregular menstruation, unspecified (principal)

== ENCOUNTER → 2021-09-18 | Outpatient (CLI) | payer BC | LOC: M WHC 11:30 | PROVIDERS: ATTEND Family Medicine | DX: E04.1 Nontoxic single thyroid nodule (principal) ==

== ENCOUNTER → 2021-11-02 | Outpatient (CLI) | payer BC ==
[~2021-11-02] MED LIST changes: +EXCETAB32 PO; -EXCETAB33 PO
== END ==
LOC: M SOG 07:54
PROVIDERS: ATTEND Orthopaedic Surgery
DX: M25.561 Pain in right knee (principal)

== ENCOUNTER → 2021-11-14 | Outpatient (CLI) | payer BC ==
[2021-11-14 13:38] LABS: FOLLICLE STIMULATING HORMONE 6.9 mIU/mL
[2021-11-14 14:30] LABS: HEMOGLOBIN A1c 6.3 %
[2021-11-15 20:08] LABS: TESTOSTERONE FREE (DIRECT) 3.6 pg/mL (0.0-4.2)
== END ==
LOC: M WUC 10:19
PROVIDERS: ATTEND Internal Medicine Endocrinology, Diabetes & Metabolism
DX: E28.2 Polycystic ovarian syndrome (principal)

== ENCOUNTER → 2021-11-26 | Outpatient (CLI) | payer BC ==
[~2021-11-26] MED LIST changes: +DIPH25CA32 PO
== END ==
LOC: M LABSMTC 11:20
PROVIDERS: ATTEND Anesthesiology
DX: Z01.812 Encounter for preprocedural laboratory examination (principal); Z20.822 Contact with and (suspected) exposure to COVID-19

== ENCOUNTER 2021-12-01 08:09 | Day surgery (SDC) | payer BC ==
[~2021-12-01] VITALS: Ht 162.6 cm; Wt 130.2 kg
[~2021-12-01 08:09] MED LIST changes: +NS 1,000 ML IV ONE
[2021-12-01] MEDS ORDERED: propofoL 200 MG/20 ML VIAL As Ordered ONE (09:59)
[2021-12-01] MEDS ORDERED: LIDOCAINE 2% INJ 100 MG/5 ML SYRINGE As Ordered ONE (09:59)
[2021-12-01 10:20] VITALS: BP 134/81
== END 2021-12-01 10:36 | disposition home or self-care (01) ==
LOC: M OPP 08:09
PROVIDERS: ATTEND Internal Medicine Gastroenterology
DX: K21.00 Gastro-esophageal reflux disease with esophagitis, without bleeding (principal); K29.50 Unspecified chronic gastritis without bleeding; Z80.0 Family history of malignant neoplasm of digestive organs; Z79.1 Long term (current) use of non-steroidal anti-inflammatories (NSAID); Z79.899 Other long term (current) drug therapy

== ENCOUNTER → 2021-12-19 | Outpatient (CLI) | payer BC ==
[~2021-12-19] MED LIST changes: -NS 1,000 ML IV ONE
== END ==
LOC: M PLAIMG 06:58
PROVIDERS: ATTEND Orthopaedic Surgery
DX: M25.561 Pain in right knee (principal); M25.461 Effusion, right knee; M94.261 Chondromalacia, right knee

== ENCOUNTER → 2022-01-15 | Outpatient (CLI) | payer BC | LOC: M LABSMTC 10:09 | PROVIDERS: ATTEND Anesthesiology | DX: Z01.818 Encounter for other preprocedural examination (principal); Z11.52 Encounter for screening for COVID-19 ==

== ENCOUNTER → 2022-09-22 | Outpatient (CLI) | payer OTHER, BC ==
[~2022-09-22] MED LIST changes: +DIPH-435 PO; -DIPH25CA32 PO; +ZZZQ25CA PO
== END ==
LOC: M RAD 13:06
PROVIDERS: ATTEND Physician Assistant Surgical
DX: S40.012A Contusion of left shoulder, initial encounter (principal); Z53.9 Procedure and treatment not carried out, unspecified reason

== ENCOUNTER → 2022-11-12 | Outpatient (CLI) | payer OTHER | LOC: M RAD 12:49 | PROVIDERS: ATTEND Physician Assistant Surgical | DX: S40.012A Contusion of left shoulder, initial encounter (principal); Z98.890 Other specified postprocedural states; X58.XXXA Exposure to other specified factors, initial encounter; Y92.9 Unspecified place or not applicable; Y93.9 Activity, unspecified; Y99.9 Unspecified external cause status; M94.212 Chondromalacia, left shoulder ==

== ENCOUNTER → 2022-11-16 | Outpatient (CLI) | payer BC ==
[2022-11-16 10:59] LABS: BASO # 0.1 10^3/uL (0.0-0.2); BASO % 0.7 % (0.0-1.0); EOS # 0.1 10^3/uL (0.0-0.5); EOS % 1.6 % (0.0-3.0); HEMATOCRIT 39.3 % (36.0-47.0); HEMOGLOBIN 12.5 g/dl (12.0-15.5); LYMPH # 2.1 10^3/uL (1.5-5.0); LYMPH % 25.9 % (24.0-44.0); MEAN CORPUSCULAR HEMOGLOBIN 26.3 pg (27.0-33.0); MEAN CORPUSCULAR HGB CONC 31.8 g/dl (32.0-36.5); MEAN CORPUSCULAR VOLUME 82.6 fl (80.0-96.0); MONO # 0.4 10^3/uL (0.0-0.8); MONO % 4.6 % (2.0-8.0); NEUTROPHILS # 5.4 10^3/uL (1.5-8.5); NEUTROPHILS % 66.8 % (36.0-66.0); PLATELET COUNT, AUTOMATED 379 10^3/uL (150-450); RED BLOOD COUNT 4.76 10^6/uL (4.00-5.40); WHITE BLOOD COUNT 8.1 10^3/uL (4.0-10.0)
[2022-11-16 11:08] LABS: ERYTHROCYTE SEDIMENTATION RATE 44 mm/hr (0-20)
[2022-11-16 11:21] LABS: RHEUMATOID FACTOR QUANT < 3.5 IU/ML (<14)
[2022-11-17 11:15] LABS: ANTINUCLEAR ANTIBODIES DIRECT Negative (Negative)
== END ==
LOC: M LAB 09:31
PROVIDERS: ATTEND Orthopaedic Surgery
DX: S83.241A Other tear of medial meniscus, current injury, right knee, initial encounter (principal); X58.XXXA Exposure to other specified factors, initial encounter; Y92.9 Unspecified place or not applicable; Y93.9 Activity, unspecified; Y99.9 Unspecified external cause status

== ENCOUNTER → 2022-11-16 | Outpatient (CLI) | payer BC ==
[2022-11-16 10:59] LABS: BASO # 0.1 10^3/uL (0.0-0.2); BASO % 0.7 % (0.0-1.0); EOS # 0.2 10^3/uL (0.0-0.5); EOS % 1.8 % (0.0-3.0); HEMATOCRIT 39.4 % (36.0-47.0); HEMOGLOBIN 12.4 g/dl (12.0-15.5); LYMPH # 2.2 10^3/uL (1.5-5.0); LYMPH % 25.9 % (24.0-44.0); MEAN CORPUSCULAR HEMOGLOBIN 25.8 pg (27.0-33.0); MEAN CORPUSCULAR HGB CONC 31.5 g/dl (32.0-36.5); MEAN CORPUSCULAR VOLUME 82.1 fl (80.0-96.0); MONO # 0.4 10^3/uL (0.0-0.8); MONO % 4.5 % (2.0-8.0); NEUTROPHILS # 5.6 10^3/uL (1.5-8.5); NEUTROPHILS % 66.7 % (36.0-66.0); PLATELET COUNT, AUTOMATED 386 10^3/uL (150-450); WHITE BLOOD COUNT 8.4 10^3/uL (4.0-10.0)
[2022-11-16 11:20] LABS: ALBUMIN 3.5 G/DL (3.2-5.2); ALKALINE PHOSPHATASE 95 U/L (46-116); ALT/SGPT 16 U/L (7.0-40); AST/SGOT < 8 U/L (<34); BILIRUBIN,TOTAL 0.4 MG/DL (0.3-1.2); BLOOD UREA NITROGEN 7 MG/DL (9-23); CALCIUM LEVEL 8.9 MG/DL (8.5-10.1); CARBON DIOXIDE LEVEL 30 MMOL/L (20-31); CHLORIDE LEVEL 104 MMOL/L (98-107); CHOLESTEROL LEVEL 149 MG/DL (<200); CHOLESTEROL RISK RATIO 2.96 (<5); GLOMERULAR FILTRATION RATE > 60.0 (>60); GLUCOSE, FASTING 112 MG/DL (60-100); HDL CHOLESTEROL 50.2 MG/DL (>40); LDL CHOLESTEROL 77.4 MG/DL (<100); NON-HDL-C 98.8 MG/DL; SODIUM LEVEL 138 MMOL/L (136-145); TOTAL PROTEIN 7.3 G/DL (5.7-8.2); TRIGLYCERIDES LEVEL 107 MG/DL (<150)
[2022-11-16 11:28] LABS: HEMOGLOBIN A1c 6.2 % (4.0-6.0)
== END ==
LOC: M LAB 09:33
PROVIDERS: ATTEND Family Medicine
DX: Z00.00 Encounter for general adult medical examination without abnormal findings (principal); R05.9 Cough, unspecified; R73.03 Prediabetes

== ENCOUNTER → 2023-01-07 | Outpatient (CLI) | payer BC | LOC: M RAD 16:10 | PROVIDERS: ATTEND Orthopaedic Surgery | DX: M25.561 Pain in right knee (principal) ==

== ENCOUNTER → 2023-03-29 | Outpatient (REF) | payer BC ==
[~2023-03-29] MED LIST changes: +DIAZ-654 PO; -VALI10TA PO
[2023-03-29 13:38] LABS: BASO # 0.1 10^3/uL (0.0-0.2); BASO % 0.6 % (0.0-1.0); EOS # 0.2 10^3/uL (0.0-0.5); EOS % 2.2 % (0.0-3.0); HEMATOCRIT 40.6 % (36.0-47.0); HEMOGLOBIN 12.8 g/dl (12.0-15.5); LYMPH # 2.5 10^3/uL (1.5-5.0); MEAN CORPUSCULAR HEMOGLOBIN 27.1 pg (27.0-33.0); MEAN CORPUSCULAR HGB CONC 31.5 g/dl (32.0-36.5); MEAN CORPUSCULAR VOLUME 85.8 fl (80.0-96.0); MONO # 0.5 10^3/uL (0.0-0.8); NEUTROPHILS # 4.9 10^3/uL (1.5-8.5); PLATELET COUNT, AUTOMATED 376 10^3/uL (150-450); RED BLOOD COUNT 4.73 10^6/uL (4.00-5.40); WHITE BLOOD COUNT 8.2 10^3/uL (4.0-10.0)
[2023-03-29 13:41] LABS: URIC ACID 6.4 MG/DL (3.1-7.8)
[2023-03-29 13:44] LABS: ALBUMIN 3.4 G/DL (3.2-5.2); ALKALINE PHOSPHATASE 76 U/L (46-116); ALT/SGPT 26 U/L (7.0-40); AST/SGOT 17 U/L (<34); BILIRUBIN,TOTAL 0.4 MG/DL (0.3-1.2); BLOOD UREA NITROGEN 12 MG/DL (9-23); CARBON DIOXIDE LEVEL 30 MMOL/L (20-31); CHLORIDE LEVEL 104 MMOL/L (98-107); GLOMERULAR FILTRATION RATE > 60.0 (>60); GLUCOSE, FASTING 105 MG/DL (60-100); POTASSIUM SERUM 4.2 MMOL/L (3.5-5.1); RHEUMATOID FACTOR QUANT < 3.5 IU/ML (<14); SODIUM LEVEL 141 MMOL/L (136-145); TOTAL PROTEIN 7.3 G/DL (5.7-8.2)
[2023-03-29 14:10] LABS: ERYTHROCYTE SEDIMENTATION RATE 47 mm/hr (0-20)
[2023-03-30 23:09] LABS: ANA (HEP2) Negative (.); CYCLIC CITRULLINATED PEPTIDE 6 units (0-19)
== END ==
LOC: M SFHCADAM 07:57
PROVIDERS: ATTEND Physician Assistant
DX: R79.82 Elevated C-reactive protein (CRP) (principal); M25.561 Pain in right knee; M17.11 Unilateral primary osteoarthritis, right knee

== ENCOUNTER 2023-04-16 00:43 | Emergency (ER) | payer BC ==
[~2023-04-16] VITALS: Ht 162.6 cm; Wt 122.9 kg
[2023-04-16 00:44] VITALS: TEMP 98
[2023-04-16] MEDS ORDERED: VYVA30CA4 PO (00:49)
[2023-04-16] MEDS ORDERED: NS 1,000 ML IV ONE (03:15)
[2023-04-16] MEDS ORDERED: cefTRIAXone SOD 1 GM in D5W MINI-BAG PLUS 50 ML IV ONE (03:15)
[2023-04-16 03:18] LABS: URINE PREG TEST NEGATIVE (NEGATIVE)
[2023-04-16 04:00] LABS: BASO # 0.1 10^3/uL (0.0-0.2); BASO % 0.4 % (0.0-1.0); EOS # 0.1 10^3/uL (0.0-0.5); EOS % 0.7 % (0.0-3.0); HEMATOCRIT 37.9 % (36.0-47.0); HEMOGLOBIN 12.7 g/dl (12.0-15.5); LYMPH # 2.1 10^3/uL (1.5-5.0); LYMPH % 12.3 % (24.0-44.0); MEAN CORPUSCULAR HEMOGLOBIN 27.3 pg (27.0-33.0); MEAN CORPUSCULAR HGB CONC 33.5 g/dl (32.0-36.5); MEAN CORPUSCULAR VOLUME 81.3 fl (80.0-96.0); MONO # 0.8 10^3/uL (0.0-0.8); MONO % 4.7 % (2.0-8.0); NEUTROPHILS # 13.7 10^3/uL (1.5-8.5); NEUTROPHILS % 81.6 % (36.0-66.0); PLATELET COUNT, AUTOMATED 428 10^3/uL (150-450); RED BLOOD COUNT 4.66 10^6/uL (4.00-5.40); WHITE BLOOD COUNT 16.8 10^3/uL (4.0-10.0)
[2023-04-16 04:23] LABS: LIPASE 30 U/L (12-53)
[2023-04-16 04:25] LABS: ALBUMIN 3.4 G/DL (3.2-5.2); ALKALINE PHOSPHATASE 78 U/L (46-116); ALT/SGPT 26 U/L (7.0-40); AST/SGOT 32 U/L (<34); BILIRUBIN,DIRECT < 0.1 MG/DL (<0.4); BILIRUBIN,TOTAL 0.4 MG/DL (0.3-1.2); BLOOD UREA NITROGEN 10 MG/DL (9-23); CALCIUM LEVEL 8.8 MG/DL (8.5-10.1); CARBON DIOXIDE LEVEL 21 MMOL/L (20-31); CHLORIDE LEVEL 105 MMOL/L (98-107); CREATININE FOR GFR 0.59 MG/DL (0.55-1.30); GLOMERULAR FILTRATION RATE > 60.0 (>60); GLUCOSE, FASTING 141 MG/DL (60-100); POTASSIUM SERUM 4.7 MMOL/L (3.5-5.1); SODIUM LEVEL 137 MMOL/L (136-145); TOTAL PROTEIN 7.2 G/DL (5.7-8.2)
[2023-04-16] MEDS ORDERED: ONDANSETRON 4MG 2ML VIAL IV ONE (04:40)
[2023-04-16] MEDS ORDERED: CEFD300C42 PO (05:16)
[2023-04-16] MEDS ORDERED: ONDA4TAB6 PO (05:18)
[2023-04-16 05:30] VITALS: BP 150/90; O2SAT 100
== END 2023-04-16 05:34 | disposition home or self-care (01) ==
LOC: M ED 00:43
DX: N10 Acute pyelonephritis (principal); F90.9 Attention-deficit hyperactivity disorder, unspecified type; F41.9 Anxiety disorder, unspecified; F32.A Depression, unspecified; F17.210 Nicotine dependence, cigarettes, uncomplicated; Z79.899 Other long term (current) drug therapy
CPT/HCPCS: 74176; 80048; 80076; 81001; 83690; 84703; 85025; 87088; 87186; 93041; 96365; 96366; 96375; 99284; J0696; J2405

== ENCOUNTER → 2023-05-03 | Outpatient (REF) | payer BC ==
[~2023-05-03] MED LIST changes: +CEFD1CAP9 PO; +ONDA4TAB6 PO; +VYVA30CA4 PO
[2023-05-03 14:53] LABS: BLOOD UREA NITROGEN 10 MG/DL (9-23); CALCIUM LEVEL 8.9 MG/DL (8.5-10.1); CARBON DIOXIDE LEVEL 30 MMOL/L (20-31); CHLORIDE LEVEL 103 MMOL/L (98-107); GLOMERULAR FILTRATION RATE > 60.0 (>60); GLUCOSE, FASTING 117 MG/DL (60-100); POTASSIUM SERUM 4.6 MMOL/L (3.5-5.1); SODIUM LEVEL 139 MMOL/L (136-145)
[2023-05-03 15:12] LABS: HEMOGLOBIN A1c 5.9 % (4.0-6.0)
== END ==
LOC: M SFHCADAM 07:23
PROVIDERS: ATTEND Family Medicine
DX: R73.01 Impaired fasting glucose (principal)

== ENCOUNTER → 2023-06-18 | Outpatient (CLI) | payer BC, OTHER ==
[~2023-06-18] MED LIST changes: +ISOVUE-300 61% 100ML VIAL As Ordered ONE; +LIDOCAINE 1% MDV 20ML VIAL As Ordered ONE; +methylPREDNISolone SUSP 40MG/ML 1ML VIAL (DEPO MEDROL) As Ordered ONE
== END ==
LOC: M RAD 10:47
PROVIDERS: ATTEND Physician Assistant Surgical
DX: M25.512 Pain in left shoulder (principal); S40.012D Contusion of left shoulder, subsequent encounter; M54.12 Radiculopathy, cervical region
CPT/HCPCS: 20610; 77002; J1030; Q9967

== ENCOUNTER → 2023-07-20 | Outpatient (CLI) | payer OTHER ==
[~2023-07-20] MED LIST changes: -ISOVUE-300 61% 100ML VIAL As Ordered ONE; -LIDOCAINE 1% MDV 20ML VIAL As Ordered ONE; -methylPREDNISolone SUSP 40MG/ML 1ML VIAL (DEPO MEDROL) As Ordered ONE
== END ==
LOC: M RAD 14:27
PROVIDERS: ATTEND Psychiatry & Neurology Neurology
DX: G43.809 Other migraine, not intractable, without status migrainosus (principal); R42 Dizziness and giddiness

== ENCOUNTER → 2023-08-08 | Outpatient (CLI) | payer OTHER | LOC: M PAIN 08:00 | PROVIDERS: ATTEND Nurse Practitioner Family | DX: M54.2 Cervicalgia (principal); G89.29 Other chronic pain; M25.512 Pain in left shoulder; K21.9 Gastro-esophageal reflux disease without esophagitis; F41.0 Panic disorder [episodic paroxysmal anxiety]; F32.9 Major depressive disorder, single episode, unspecified; Z87.891 Personal history of nicotine dependence; Z79.899 Other long term (current) drug therapy ==

== ENCOUNTER → 2023-08-12 | Outpatient (REF) | payer OTHER | LOC: M SFHCADAM 16:27 | PROVIDERS: ATTEND Family Medicine | DX: R10.9 Unspecified abdominal pain (principal); N89.8 Other specified noninflammatory disorders of vagina ==

== ENCOUNTER → 2023-09-18 | Outpatient (CLI) | payer OTHER | LOC: M PAIN 10:30 | PROVIDERS: ATTEND Anesthesiology | DX: M25.512 Pain in left shoulder (principal); M54.2 Cervicalgia; M79.10 Myalgia, unspecified site; M79.18 Myalgia, other site; K21.9 Gastro-esophageal reflux disease without esophagitis; F41.0 Panic disorder [episodic paroxysmal anxiety]; F32.9 Major depressive disorder, single episode, unspecified; K44.9 Diaphragmatic hernia without obstruction or gangrene; Z87.891 Personal history of nicotine dependence; Z79.899 Other long term (current) drug therapy ==

== ENCOUNTER → 2023-11-07 | Outpatient (CLI) | payer OTHER ==
[~2023-11-07] MED LIST changes: +ONDA-282 PO; -ONDA4TAB6 PO
== END ==
LOC: M ADAMS 11:22
PROVIDERS: ATTEND Physician Assistant Medical
DX: M25.562 Pain in left knee (principal)

== ENCOUNTER → 2023-11-15 | Outpatient (CLI) | payer OTHER ==
[~2023-11-15] MED LIST changes: +TRIAMCINOLONE ACETONIDE SUSP 40MG/ML 1ML VIAL As Ordered ONE; +diazePAM 5MG TABLET As Ordered ONE; +oxyCODONE 5MG TAB As Ordered ONE
== END ==
LOC: M PAIN 13:00
PROVIDERS: ATTEND Anesthesiology
DX: M79.18 Myalgia, other site (principal); Z87.891 Personal history of nicotine dependence; Z79.1 Long term (current) use of non-steroidal anti-inflammatories (NSAID); Z79.899 Other long term (current) drug therapy
CPT/HCPCS: 20552; J0665; J3301

== ENCOUNTER → 2023-11-27 | Outpatient (CLI) | payer OTHER ==
[~2023-11-27] MED LIST changes: -TRIAMCINOLONE ACETONIDE SUSP 40MG/ML 1ML VIAL As Ordered ONE; -diazePAM 5MG TABLET As Ordered ONE; -oxyCODONE 5MG TAB As Ordered ONE
== END ==
LOC: M ADAMS 15:16
PROVIDERS: ATTEND Physician Assistant
DX: M54.41 Lumbago with sciatica, right side (principal); M54.42 Lumbago with sciatica, left side

== ENCOUNTER → 2023-11-27 | Outpatient (REF) | payer OTHER ==
[2023-11-27 17:38] LABS: BASO # 0.1 10^3/uL (0.0-0.2); BASO % 0.7 % (0.0-1.0); EOS # 0.1 10^3/uL (0.0-0.5); HEMATOCRIT 39.9 % (36.0-47.0); HEMOGLOBIN 12.8 g/dl (12.0-15.5); LYMPH # 2.3 10^3/uL (1.5-5.0); MEAN CORPUSCULAR HEMOGLOBIN 27.3 pg (27.0-33.0); MEAN CORPUSCULAR HGB CONC 32.1 g/dl (32.0-36.5); MEAN CORPUSCULAR VOLUME 85.1 fl (80.0-96.0); MONO # 0.6 10^3/uL (0.0-0.8); MONO % 4.7 % (2.0-8.0); NEUTROPHILS # 10.5 10^3/uL (1.5-8.5); NEUTROPHILS % 76.2 % (36.0-66.0); PLATELET COUNT, AUTOMATED 412 10^3/uL (150-450); RED BLOOD COUNT 4.69 10^6/uL (4.00-5.40); WHITE BLOOD COUNT 13.7 10^3/uL (4.0-10.0)
[2023-11-27 17:54] LABS: ERYTHROCYTE SEDIMENTATION RATE 51 mm/hr (0-20)
[2023-11-27 17:59] LABS: ALBUMIN 3.4 G/DL (3.2-5.2); ALKALINE PHOSPHATASE 84 U/L (46-116); ALT/SGPT 15 U/L (7.0-40); AST/SGOT < 8 U/L (<34); BILIRUBIN,TOTAL 0.3 MG/DL (0.3-1.2); BLOOD UREA NITROGEN 10 MG/DL (9-23); CALCIUM LEVEL 9.1 MG/DL (8.5-10.1); CARBON DIOXIDE LEVEL 31 MMOL/L (20-31); CHLORIDE LEVEL 105 MMOL/L (98-107); CREATININE FOR GFR 0.74 MG/DL (0.55-1.30); GLOMERULAR FILTRATION RATE > 60.0 (>60); GLUCOSE, FASTING 93 MG/DL (60-100); POTASSIUM SERUM 4.6 MMOL/L (3.5-5.1); SODIUM LEVEL 140 MMOL/L (136-145); TOTAL PROTEIN 7.1 G/DL (5.7-8.2)
== END ==
LOC: M SFHCADAM 15:16
PROVIDERS: ATTEND Physician Assistant
DX: M54.41 Lumbago with sciatica, right side (principal); M54.42 Lumbago with sciatica, left side

== ENCOUNTER → 2023-12-04 | Outpatient (REF) | payer OTHER ==
[~2023-12-04] MED LIST changes: +ALLE24TA7 PO; +DIAZ5TAB PO; +METH-1164 PO; +NAPR-837 PO; +OMEP40CA4 PO; +PEPC1TAB5 PO
[2023-12-04 18:52] LABS: BASO # 0.1 10^3/uL (0.0-0.2); BASO % 0.6 % (0.0-1.0); EOS # 0.2 10^3/uL (0.0-0.5); HEMATOCRIT 40.6 % (36.0-47.0); HEMOGLOBIN 12.8 g/dl (12.0-15.5); LYMPH # 2.5 10^3/uL (1.5-5.0); LYMPH % 23.3 % (24.0-44.0); MEAN CORPUSCULAR HEMOGLOBIN 27.3 pg (27.0-33.0); MEAN CORPUSCULAR HGB CONC 31.5 g/dl (32.0-36.5); MEAN CORPUSCULAR VOLUME 86.6 fl (80.0-96.0); MONO # 0.5 10^3/uL (0.0-0.8); NEUTROPHILS # 7.4 10^3/uL (1.5-8.5); NEUTROPHILS % 68.8 % (36.0-66.0); PLATELET COUNT, AUTOMATED 366 10^3/uL (150-450); RED BLOOD COUNT 4.69 10^6/uL (4.00-5.40); WHITE BLOOD COUNT 10.7 10^3/uL (4.0-10.0)
[2023-12-04 19:25] LABS: ERYTHROCYTE SEDIMENTATION RATE 47 mm/hr (0-20)
== END ==
LOC: M SFHCADAM 17:07
PROVIDERS: ATTEND Physician Assistant
DX: M54.41 Lumbago with sciatica, right side (principal); M54.42 Lumbago with sciatica, left side

== ENCOUNTER 2023-12-06 14:47 | Emergency (ER) | payer OTHER ==
[~2023-12-06] VITALS: Ht 162.6 cm; Wt 115.2 kg
[~2023-12-06 14:47] MED LIST changes: -ALLE24TA7 PO; -DIAZ5TAB PO; -METH-1164 PO; -NAPR-837 PO; -OMEP40CA4 PO; -PEPC1TAB5 PO
[2023-12-06] MEDS ORDERED: DIAZ10TA2 PO (15:01)
[2023-12-06] MEDS ORDERED: DIAZ5TAB PO (15:01)
[2023-12-06] MEDS ORDERED: ALLE24TA7 PO (15:01)
[2023-12-06 17:58] LABS: BASO # 0.1 10^3/uL (0.0-0.2); BASO % 0.5 % (0.0-1.0); EOS # 0.2 10^3/uL (0.0-0.5); EOS % 1.3 % (0.0-3.0); HEMOGLOBIN 12.9 g/dl (12.0-15.5); LYMPH # 2.4 10^3/uL (1.5-5.0); LYMPH % 19.1 % (24.0-44.0); MEAN CORPUSCULAR HEMOGLOBIN 26.9 pg (27.0-33.0); MEAN CORPUSCULAR HGB CONC 32.3 g/dl (32.0-36.5); MEAN CORPUSCULAR VOLUME 83.3 fl (80.0-96.0); MONO # 0.6 10^3/uL (0.0-0.8); MONO % 4.8 % (2.0-8.0); NEUTROPHILS # 9.2 10^3/uL (1.5-8.5); PLATELET COUNT, AUTOMATED 378 10^3/uL (150-450); WHITE BLOOD COUNT 12.5 10^3/uL (4.0-10.0)
[2023-12-06 18:16] LABS: BLOOD UREA NITROGEN 11 MG/DL (9-23); CALCIUM LEVEL 9.2 MG/DL (8.5-10.1); CARBON DIOXIDE LEVEL 31 MMOL/L (20-31); CHLORIDE LEVEL 105 MMOL/L (98-107); CREATININE FOR GFR 0.78 MG/DL (0.55-1.30); GLOMERULAR FILTRATION RATE > 60.0 (>60); GLUCOSE, FASTING 103 MG/DL (60-100); POTASSIUM SERUM 4.7 MMOL/L (3.5-5.1); SODIUM LEVEL 141 MMOL/L (136-145)
[2023-12-06] MEDS: diazePAM 10MG/2ML SYRINGE IV ONE (19:34)
[2023-12-06] MEDS: KETOROLAC 30 MG/ML 1ML VIAL IV ONE (19:34)
[2023-12-06] MEDS: HYDROMORPHONE HCL 0.5 MG/ 0.5 ML SYRINGE IV ONE (20:19)
[2023-12-06] MEDS ORDERED: PROHANCE 279.3MG/ML 15ML VIAL As Ordered ONE (21:33)
[2023-12-06] MEDS ORDERED: PROHANCE 279.3MG/ML 5ML VIAL As Ordered ONE (21:33)
[2023-12-06 22:41] VITALS: BP 138/68; TEMP 97.8; O2SAT 100
[2023-12-06] MEDS ORDERED: METH-1164 PO (23:31)
[2023-12-06] MEDS ORDERED: PEPC1TAB5 PO (23:31)
[2023-12-06] MEDS ORDERED: OMEP40CA4 PO (23:31)
[2023-12-06] MEDS ORDERED: NAPR-837 PO (23:31)
== END 2023-12-06 23:43 | disposition home or self-care (01) ==
LOC: M ED 14:47
DX: M51.24 Other intervertebral disc displacement, thoracic region (principal); M51.26 Other intervertebral disc displacement, lumbar region; K21.9 Gastro-esophageal reflux disease without esophagitis; F41.9 Anxiety disorder, unspecified; Z79.899 Other long term (current) drug therapy
CPT/HCPCS: 36415; 72146; 72148; 80048; 85025; 96374; 96375; 99284; A9576; J1170; J1885; J3360

== ENCOUNTER → 2023-12-06 | Outpatient (CLI) | payer OTHER | LOC: M PLARAD 13:07 | PROVIDERS: ATTEND Physician Assistant | DX: Z53.9 Procedure and treatment not carried out, unspecified reason (principal) ==

== ENCOUNTER → 2023-12-13 | Outpatient (CLI) | payer OTHER ==
[~2023-12-13] MED LIST changes: +ALLE24TA7 PO; +DIAZ5TAB PO; +METH-1164 PO; +NAPR-837 PO; +OMEP40CA4 PO; +PEPC1TAB5 PO
== END ==
LOC: M PAIN 15:00
PROVIDERS: ATTEND Nurse Practitioner Family
DX: M25.512 Pain in left shoulder (principal); G89.29 Other chronic pain; K21.9 Gastro-esophageal reflux disease without esophagitis; F41.0 Panic disorder [episodic paroxysmal anxiety]; F32.9 Major depressive disorder, single episode, unspecified; K44.9 Diaphragmatic hernia without obstruction or gangrene; Z87.891 Personal history of nicotine dependence; Z79.899 Other long term (current) drug therapy

== ENCOUNTER → 2024-01-15 | Outpatient (CLI) | payer OTHER | LOC: M PAIN 15:30 | PROVIDERS: ATTEND Anesthesiology | DX: M25.512 Pain in left shoulder (principal); M79.2 Neuralgia and neuritis, unspecified; M79.10 Myalgia, unspecified site; M79.18 Myalgia, other site; Z87.891 Personal history of nicotine dependence | CPT/HCPCS: 76000; G0463 ==

== ENCOUNTER → 2024-03-04 | Outpatient (CLI) | payer OTHER ==
[~2024-03-04] MED LIST changes: +GABA-1172 PO; -GABA-282 PO
== END ==
LOC: M PAIN 16:30
PROVIDERS: ATTEND Anesthesiology
DX: M25.512 Pain in left shoulder (principal); K21.9 Gastro-esophageal reflux disease without esophagitis; F41.0 Panic disorder [episodic paroxysmal anxiety]; F32.9 Major depressive disorder, single episode, unspecified; Z87.891 Personal history of nicotine dependence; Z79.899 Other long term (current) drug therapy

== ENCOUNTER → 2024-03-16 | Outpatient (CLI) | payer OTHER ==
[2024-03-16 19:05] LABS: BASO # 0.1 10^3/uL (0.0-0.2); BASO % 0.8 % (0.0-1.0); EOS # 0.2 10^3/uL (0.0-0.5); EOS % 1.8 % (0.0-3.0); HEMATOCRIT 37.3 % (36.0-47.0); HEMOGLOBIN 11.9 g/dl (12.0-15.5); LYMPH # 2.2 10^3/uL (1.5-5.0); LYMPH % 24.6 % (24.0-44.0); MEAN CORPUSCULAR HEMOGLOBIN 27.3 pg (27.0-33.0); MEAN CORPUSCULAR HGB CONC 31.9 g/dl (32.0-36.5); MEAN CORPUSCULAR VOLUME 85.6 fl (80.0-96.0); MONO # 0.5 10^3/uL (0.0-0.8); MONO % 5.8 % (2.0-8.0); NEUTROPHILS % 66.7 % (36.0-66.0); PLATELET COUNT, AUTOMATED 409 10^3/uL (150-450); RED BLOOD COUNT 4.36 10^6/uL (4.00-5.40)
[2024-03-16 19:30] LABS: ALBUMIN 3.2 G/DL (3.2-5.2); ALKALINE PHOSPHATASE 77 U/L (46-116); ALT/SGPT 14 U/L (7.0-40); AST/SGOT < 8 U/L (<34); BILIRUBIN,TOTAL 0.3 MG/DL (0.3-1.2); BLOOD UREA NITROGEN 10 MG/DL (9-23); CALCIUM LEVEL 9.5 MG/DL (8.5-10.1); CARBON DIOXIDE LEVEL 32 MMOL/L (20-31); CHLORIDE LEVEL 110 MMOL/L (98-107); CREATININE FOR GFR 0.73 MG/DL (0.55-1.30); GLOMERULAR FILTRATION RATE > 60.0 (>60); GLUCOSE, FASTING 117 MG/DL (60-100); POTASSIUM SERUM 4.5 MMOL/L (3.5-5.1); SODIUM LEVEL 142 MMOL/L (136-145); TOTAL PROTEIN 7.1 G/DL (5.7-8.2)
== END ==
LOC: M PLALAB 14:59
PROVIDERS: ATTEND Nurse Practitioner Family
DX: J02.9 Acute pharyngitis, unspecified (principal)

== ENCOUNTER → 2024-04-06 | Outpatient (CLI) | payer OTHER | LOC: M RAD 13:37 | PROVIDERS: ATTEND Anesthesiology | DX: M25.512 Pain in left shoulder (principal); S43.492A Other sprain of left shoulder joint, initial encounter; X58.XXXA Exposure to other specified factors, initial encounter; Y92.9 Unspecified place or not applicable; Y93.9 Activity, unspecified; Y99.9 Unspecified external cause status ==

== ENCOUNTER → 2024-05-06 | Outpatient (CLI) | payer OTHER | LOC: M PAIN 16:00 | PROVIDERS: ATTEND Anesthesiology | DX: M25.512 Pain in left shoulder (principal); F41.0 Panic disorder [episodic paroxysmal anxiety]; F32.9 Major depressive disorder, single episode, unspecified; K21.9 Gastro-esophageal reflux disease without esophagitis; Z79.899 Other long term (current) drug therapy; Z87.891 Personal history of nicotine dependence ==

== ENCOUNTER → 2024-06-03 | Outpatient (CLI) | payer OTHER | LOC: M PAIN 10:15 | PROVIDERS: ATTEND Anesthesiology | DX: M25.512 Pain in left shoulder (principal); F41.0 Panic disorder [episodic paroxysmal anxiety]; K21.9 Gastro-esophageal reflux disease without esophagitis; Z87.891 Personal history of nicotine dependence; Z79.899 Other long term (current) drug therapy ==

== ENCOUNTER → 2024-06-15 | Outpatient (CLI) | payer OTHER ==
[2024-06-15 12:30] LABS: HEMATOCRIT 38.5 % (36.0-47.0); HEMOGLOBIN 12.5 g/dl (12.0-15.5); MEAN CORPUSCULAR HEMOGLOBIN 27.2 pg (27.0-33.0); MEAN CORPUSCULAR HGB CONC 32.5 g/dl (32.0-36.5); MEAN CORPUSCULAR VOLUME 83.9 fl (80.0-96.0); PLATELET COUNT, AUTOMATED 365 10^3/uL (150-450); RED BLOOD COUNT 4.59 10^6/uL (4.00-5.40); WHITE BLOOD COUNT 8.1 10^3/uL (4.0-10.0)
[2024-06-15 12:54] LABS: TESTOSTERONE 32 NG/DL (14-76); THYROID STIMULATING HORMONE 2.564 uIU/ML (0.55-4.78)
[2024-06-15 12:55] LABS: TOTAL 25(OH) VITAMIN D 27.5 NG/ML (20.0-100.0)
[2024-06-15 12:57] LABS: ESTRADIOL 56.2 PG/ML; IRON (FE) 56 UG/DL (50-170); PERCENT SATURATION 16.6 % (13.2-45.0); PROLACTIN 6.02 NG/ML; TOTAL IRON BINDING CAPACITY 338 UG/DL (250-425); VITAMIN B12 LEVEL 332 PG/ML (211-911)
[2024-06-15 12:58] LABS: ALBUMIN 3.5 G/DL (3.2-5.2); ALKALINE PHOSPHATASE 83 U/L (35-104); ALT/SGPT 19 U/L (7.0-40); AST/SGOT 15 U/L (<34); BILIRUBIN,TOTAL 0.5 MG/DL (0.3-1.2); BLOOD UREA NITROGEN 10 MG/DL (9-23); CALCIUM LEVEL 9.1 MG/DL (8.5-10.1); CARBON DIOXIDE LEVEL 25 MMOL/L (20-31); CHLORIDE LEVEL 107 MMOL/L (98-107); CHOLESTEROL LEVEL 198 MG/DL (<200); CHOLESTEROL RISK RATIO 2.98 (<5); CREATININE FOR GFR 0.66 MG/DL (0.55-1.30); FREE T4 1.28 NG/DL (0.89-1.76); GLOMERULAR FILTRATION RATE > 60.0 (>60); GLUCOSE, FASTING 112 MG/DL (60-100); HDL CHOLESTEROL 66.3 MG/DL (>40); LDL CHOLESTEROL 112.1 MG/DL (<100); NON-HDL-C 131.7 MG/DL; POTASSIUM SERUM 4.1 MMOL/L (3.5-5.1); SODIUM LEVEL 141 MMOL/L (136-145); TOTAL PROTEIN 7.6 G/DL (5.7-8.2); TRIGLYCERIDES LEVEL 98 MG/DL (<150)
[2024-06-15 13:00] LABS: FOLATE 13.8 NG/ML (>5.4)
[2024-06-15 13:02] LABS: FREE T3 3.1 PG/ML (2.3-4.2)
== END ==
LOC: M LAB 10:58
PROVIDERS: ATTEND Registered Nurse
DX: E55.9 Vitamin D deficiency, unspecified (principal); F90.2 Attention-deficit hyperactivity disorder, combined type; F60.3 Borderline personality disorder; E34.9 Endocrine disorder, unspecified; E66.01 Morbid (severe) obesity due to excess calories; E72.12 Methylenetetrahydrofolate reductase deficiency; F43.10 Post-traumatic stress disorder, unspecified; Z68.41 Body mass index [BMI] 40.0-44.9, adult

== ENCOUNTER → 2024-06-17 | Outpatient (CLI) | payer OTHER | LOC: M RAD 11:45 | PROVIDERS: ATTEND Anesthesiology | DX: M25.512 Pain in left shoulder (principal) ==

== ENCOUNTER → 2024-07-28 | Outpatient (CLI) | payer OTHER | LOC: M RAD 11:15 | PROVIDERS: ATTEND Family Medicine | DX: R60.9 Edema, unspecified (principal) ==

== ENCOUNTER 2024-12-15 23:42 | Emergency (ER) | payer OTHER ==
[~2024-12-15] VITALS: Ht 162.6 cm; Wt 126.6 kg
[~2024-12-15 23:42] MED LIST changes: +PREG-35 PO; -PREG100CA PO
[2024-12-16 01:07] LABS: BASO # 0.1 10^3/uL (0.0-0.2); BASO % 0.8 % (0.0-1.0); EOS # 0.2 10^3/uL (0.0-0.5); EOS % 2.3 % (0.0-3.0); LYMPH # 3.3 10^3/uL (1.5-5.0); LYMPH % 36.7 % (24.0-44.0); MONO # 0.5 10^3/uL (0.0-0.8); MONO % 5.8 % (2.0-8.0); NEUTROPHILS # 4.9 10^3/uL (1.5-8.5); NEUTROPHILS % 54.2 % (36.0-66.0); PLATELET COUNT, AUTOMATED 482 10^3/uL (150-450)
[2024-12-16 01:35] LABS: CALCIUM LEVEL 9.0 MG/DL (8.5-10.1); CARBON DIOXIDE LEVEL 28 MMOL/L (20-31); CHLORIDE LEVEL 102 MMOL/L (98-107); CREATININE FOR GFR 0.76 MG/DL (0.55-1.30); GLOMERULAR FILTRATION RATE > 90.0 (>60); POTASSIUM SERUM 3.8 MMOL/L (3.5-5.1); SODIUM LEVEL 142 MMOL/L (136-145)
[2024-12-16 01:51] LABS: HCG, SERUM QUALITATIVE NEGATIVE (NEGATIVE)
[2024-12-16 05:04] VITALS: BP 142/84; TEMP 97.4; O2SAT 99
== END 2024-12-16 05:10 | disposition home or self-care (01) ==
LOC: M ED 23:42
DX: N88.9 Noninflammatory disorder of cervix uteri, unspecified (principal); N93.9 Abnormal uterine and vaginal bleeding, unspecified; F41.9 Anxiety disorder, unspecified; K21.9 Gastro-esophageal reflux disease without esophagitis; Z79.899 Other long term (current) drug therapy

== ENCOUNTER 2024-12-22 12:31 | Day surgery (SDC) | payer OTHER ==
[~2024-12-22] VITALS: Ht 162.6 cm; Wt 125.6 kg
[2024-12-22] MEDS ORDERED: LR 1,000 ML IV SCH (13:20)
[2024-12-22] MEDS ORDERED: MIDAZOLAM INJ 2 MG/2 ML VIAL As Ordered ONE (13:36)
[2024-12-22] MEDS ORDERED: LIDOCAINE 2% 100 MG/5 ML SDV (FOR ANES.) As Ordered ONE (13:37)
[2024-12-22] MEDS ORDERED: dexAMETHasone 4 MG/ML 1 ML VIAL As Ordered ONE (13:39)
[2024-12-22] MEDS ORDERED: ACETAMINOPHEN 1000MG/100ML IV BAG As Ordered ONE (14:51)
[2024-12-22] MEDS ORDERED: ONDANSETRON 4MG 2ML VIAL As Ordered ONE (15:00)
[2024-12-22] MEDS ORDERED: KETOROLAC 30 MG/ML 1 ML VIAL As Ordered ONE (15:00)
[2024-12-22 15:44] VITALS: BP 130/79; TEMP 97.7; O2SAT 99
== END 2024-12-22 15:48 | disposition home or self-care (01) ==
LOC: M SDC 12:31
PROVIDERS: ATTEND Specialist
DX: C53.9 Malignant neoplasm of cervix uteri, unspecified (principal); N93.8 Other specified abnormal uterine and vaginal bleeding; K21.9 Gastro-esophageal reflux disease without esophagitis; F41.9 Anxiety disorder, unspecified; F32.A Depression, unspecified; G43.909 Migraine, unspecified, not intractable, without status migrainosus; F43.10 Post-traumatic stress disorder, unspecified; Z79.899 Other long term (current) drug therapy
CPT/HCPCS: 57500; 81025; 88305; J0131; J1100; J1885; J2250; J2405; J3010

== ENCOUNTER → 2025-01-18 | Outpatient (CLI) | payer OTHER | LOC: M PLARAD 12:56 | PROVIDERS: ATTEND Nurse Practitioner | DX: C53.9 Malignant neoplasm of cervix uteri, unspecified (principal) | CPT/HCPCS: 78815; A9552 ==

== ENCOUNTER → 2025-02-02 | Outpatient (CLI) | payer OTHER ==
[~2025-02-02] VITALS: Ht 162.6 cm; Wt 130.6 kg
[~2025-02-02] MED LIST changes: +ALLE180T33 PO; +MELO7.5T35 PO; +PROC10TA5 PO
[2025-02-02 15:19] VITALS: BP 118/80; O2SAT 97
== END ==
LOC: M PAL 15:00
PROVIDERS: ATTEND Physician Assistant
DX: Z51.5 Encounter for palliative care (principal); C53.9 Malignant neoplasm of cervix uteri, unspecified; C77.5 Secondary and unspecified malignant neoplasm of intrapelvic lymph nodes; Z79.891 Long term (current) use of opiate analgesic; Z79.899 Other long term (current) drug therapy
CPT/HCPCS: G0463; G2212

== ENCOUNTER → 2025-02-10 | Outpatient (CLI) | payer OTHER | LOC: M ONCR 10:25 | PROVIDERS: ATTEND General Practice | DX: C53.1 Malignant neoplasm of exocervix (principal); Z90.49 Acquired absence of other specified parts of digestive tract; Z87.442 Personal history of urinary calculi; Z80.0 Family history of malignant neoplasm of digestive organs; Z83.3 Family history of diabetes mellitus; Z87.891 Personal history of nicotine dependence; Z88.8 Allergy status to other drugs, medicaments and biological substances; Z79.899 Other long term (current) drug therapy ==

== ENCOUNTER → 2025-02-23 | Outpatient (RCR) | payer OTHER ==
[~2025-02-23] MED LIST changes: +ACET-683 PO; +BUTR5DIS TOP
== END ==
LOC: M ONCR 10:59
PROVIDERS: ATTEND General Practice
DX: Z51.0 Encounter for antineoplastic radiation therapy (principal); C53.1 Malignant neoplasm of exocervix

== ENCOUNTER → 2025-02-23 | Outpatient (CLI) | payer OTHER ==
[~2025-02-23] VITALS: Ht 162.6 cm; Wt 127.0 kg
[2025-02-23 13:10] VITALS: O2SAT 97
== END ==
LOC: M PAL 11:41
PROVIDERS: ATTEND Physician Assistant
DX: Z51.5 Encounter for palliative care (principal); C53.9 Malignant neoplasm of cervix uteri, unspecified; C77.5 Secondary and unspecified malignant neoplasm of intrapelvic lymph nodes; Z79.891 Long term (current) use of opiate analgesic; Z88.6 Allergy status to analgesic agent; Z79.899 Other long term (current) drug therapy

== ENCOUNTER → 2025-03-10 | Outpatient (CLI) | payer OTHER ==
[~2025-03-10] VITALS: Ht 162.6 cm; Wt 126.5 kg
[~2025-03-10] MED LIST changes: +BUTR1DIS2 TOP; +LIDO30CR18 TOP
[2025-03-10 09:50] VITALS: BP 157/98; O2SAT 97
== END ==
LOC: M PAL 09:35
PROVIDERS: ATTEND Physician Assistant
DX: Z51.5 Encounter for palliative care (principal); C53.9 Malignant neoplasm of cervix uteri, unspecified; C77.5 Secondary and unspecified malignant neoplasm of intrapelvic lymph nodes; R52 Pain, unspecified; R11.0 Nausea; F41.9 Anxiety disorder, unspecified; F32.A Depression, unspecified; G47.09 Other insomnia; Z79.899 Other long term (current) drug therapy; Z88.8 Allergy status to other drugs, medicaments and biological substances; Z92.21 Personal history of antineoplastic chemotherapy; Z92.3 Personal history of irradiation

== ENCOUNTER 2025-03-15 12:03 | Emergency (ER) | payer OTHER ==
[~2025-03-15] VITALS: Ht 162.6 cm; Wt 126.2 kg
[2025-03-15 12:54] LABS: BASO # 0.0 10^3/uL (0.0-0.2); BASO % 0.4 % (0.0-1.0); EOS # 0.1 10^3/uL (0.0-0.5); EOS % 1.7 % (0.0-3.0); LYMPH # 1.0 10^3/uL (1.5-5.0); LYMPH % 11.6 % (24.0-44.0); MONO # 0.4 10^3/uL (0.0-0.8); MONO % 4.3 % (2.0-8.0); NEUTROPHILS # 6.8 10^3/uL (1.5-8.5); NEUTROPHILS % 81.6 % (36.0-66.0); PLATELET COUNT, AUTOMATED 476 10^3/uL (150-450)
[2025-03-15 13:17] LABS: ALT/SGPT 15 U/L (7.0-40); AST/SGOT 14 U/L (<34); CALCIUM LEVEL 9.3 MG/DL (8.5-10.1); CARBON DIOXIDE LEVEL 30 MMOL/L (20-31); CHLORIDE LEVEL 98 MMOL/L (98-107); CK-MB VALUE MASS < 1.0 NG/ML (<3.6); CPK CREATINE PHOSPHOKINASE 40 U/L (34-145); CREATININE FOR GFR 0.65 MG/DL (0.55-1.30); FREE T4 1.33 NG/DL (0.89-1.76); GLOMERULAR FILTRATION RATE > 90.0 (>60); HCG, SERUM QUALITATIVE NEGATIVE (NEGATIVE); POTASSIUM SERUM 4.6 MMOL/L (3.5-5.1); SODIUM LEVEL 137 MMOL/L (136-145)
[2025-03-15] MEDS ORDERED: OLOP5DRO17 (13:58)
[2025-03-15 14:29] LABS: INR 0.91
[2025-03-15 14:34] LABS: CK-MB VALUE MASS < 1.0 NG/ML (<3.6)
[2025-03-15 14:36] LABS: CPK CREATINE PHOSPHOKINASE 43 U/L (34-145)
[2025-03-15] MEDS: MORPHINE 2 MG/ML 1 ML VIAL IV ONE (16:27)
[2025-03-15] MEDS: KETOROLAC 30 MG/ML 1 ML VIAL IV ONE (17:02)
[2025-03-15] MEDS: LIDOCAINE VISCOUS 2% SOLN 15 ML UDC PO ONE (17:02)
[2025-03-15] MEDS: MAALOX 30 ML SUSP *UDC PO ONE (17:02)
[2025-03-15] MEDS ORDERED: ISOVUE-370 76% 100 ML VIAL As Ordered ONE (17:35)
[2025-03-15] MEDS ORDERED: SUCR1TA PO (19:42)
[2025-03-15] MEDS ORDERED: OMEP40CA4 PO (19:42)
[2025-03-15 19:55] VITALS: BP 108/59; TEMP 99.1; O2SAT 97
[2025-03-19] MEDS ORDERED: OLAN1TAB20 PO (09:07)
[2025-03-22] MEDS ORDERED: LORA1TAB23 PO (09:28)
== END 2025-03-15 19:58 | disposition home or self-care (01) ==
LOC: M ED 12:03
DX: R07.89 Other chest pain (principal); K21.9 Gastro-esophageal reflux disease without esophagitis; Z85.41 Personal history of malignant neoplasm of cervix uteri; F17.290 Nicotine dependence, other tobacco product, uncomplicated; Z79.899 Other long term (current) drug therapy; Z88.8 Allergy status to other drugs, medicaments and biological substances
CPT/HCPCS: 71045; 71275; 80048; 80076; 82550; 82553; 83690; 84439; 84443; 84484; 84703; 85025; 85610; 93005; 96374; 96375; 99285; J1885; Q9967

== ENCOUNTER → 2025-03-19 | Outpatient (CLI) | payer OTHER ==
[~2025-03-19] MED LIST changes: +LORA1TAB23 PO; +OLAN1TAB20 PO; +OLOP5DRO17; +SUCR1TA PO
== END ==
LOC: M PAL 09:17
PROVIDERS: ATTEND Family Medicine
DX: Z51.5 Encounter for palliative care (principal); C53.9 Malignant neoplasm of cervix uteri, unspecified; R59.9 Enlarged lymph nodes, unspecified; Z92.21 Personal history of antineoplastic chemotherapy; Z79.891 Long term (current) use of opiate analgesic; Z91.148 Patient's other noncompliance with medication regimen for other reason; Z88.5 Allergy status to narcotic agent; Z79.899 Other long term (current) drug therapy; Z79.83 Long term (current) use of bisphosphonates

== ENCOUNTER → 2025-03-25 | Outpatient (CLI) | payer OTHER ==
[~2025-03-25] VITALS: Ht 162.6 cm; Wt 131.3 kg
[2025-03-25 09:10] VITALS: BP 136/78; O2SAT 96
== END ==
LOC: M PAL 08:56
PROVIDERS: ATTEND Physician Assistant
DX: Z51.5 Encounter for palliative care (principal); C53.9 Malignant neoplasm of cervix uteri, unspecified; C77.3 Secondary and unspecified malignant neoplasm of axilla and upper limb lymph nodes; Z92.21 Personal history of antineoplastic chemotherapy; Z92.3 Personal history of irradiation; Z79.891 Long term (current) use of opiate analgesic

== ENCOUNTER → 2025-03-26 | Outpatient (RCR) | payer OTHER ==
[~2025-03-26] MED LIST changes: +MAGN250T6 PO
== END ==
LOC: M ONCR 02-24 09:29
PROVIDERS: ATTEND General Practice
DX: Z51.0 Encounter for antineoplastic radiation therapy (principal); C53.1 Malignant neoplasm of exocervix

== ENCOUNTER → 2025-04-01 | Outpatient (CLI) | payer OTHER ==
[~2025-04-01] VITALS: Ht 162.6 cm; Wt 127.9 kg
[2025-04-01 09:09] VITALS: BP 118/72; O2SAT 97
== END ==
LOC: M PAL 08:58
PROVIDERS: ATTEND Physician Assistant
DX: Z51.5 Encounter for palliative care (principal); C90.00 Multiple myeloma not having achieved remission; Z92.21 Personal history of antineoplastic chemotherapy; Z92.3 Personal history of irradiation; Z79.891 Long term (current) use of opiate analgesic; Z88.6 Allergy status to analgesic agent; Z79.899 Other long term (current) drug therapy; Z79.83 Long term (current) use of bisphosphonates

== ENCOUNTER → 2025-04-08 | Outpatient (CLI) | payer OTHER ==
[~2025-04-08] MED LIST changes: +MAGN400T2 PO
== END ==
LOC: M PAL 09:27
PROVIDERS: ATTEND Physician Assistant
DX: Z51.5 Encounter for palliative care (principal); C53.9 Malignant neoplasm of cervix uteri, unspecified; C77.5 Secondary and unspecified malignant neoplasm of intrapelvic lymph nodes; Z92.21 Personal history of antineoplastic chemotherapy; Z92.3 Personal history of irradiation; Z79.891 Long term (current) use of opiate analgesic; Z88.5 Allergy status to narcotic agent; Z79.899 Other long term (current) drug therapy; Z79.83 Long term (current) use of bisphosphonates

== ENCOUNTER → 2025-04-19 | Outpatient (CLI) | payer OTHER ==
[~2025-04-19] MED LIST changes: +ATIV2TAB PO; +OMEP-173 PO; +POTA-151 PO
== END ==
LOC: M PLAIMG 12:47
PROVIDERS: ATTEND General Practice
DX: C53.1 Malignant neoplasm of exocervix (principal)

== ENCOUNTER 2025-04-21 09:45 | Outpatient (RCR) | payer OTHER | END 2025-04-25 | LOC: M ONCR 09:45 | PROVIDERS: ATTEND General Practice | DX: Z51.0 Encounter for antineoplastic radiation therapy (principal); C53.1 Malignant neoplasm of exocervix ==

== ENCOUNTER 2025-04-30 16:35 | Emergency (ER) | payer OTHER ==
[~2025-04-30] VITALS: Ht 162.6 cm; Wt 123.4 kg
[2025-04-30] MEDS ORDERED: ACETAMINOPHEN 325 MG TAB PO ONE (17:25)
[2025-04-30] MEDS: ACETAMINOPHEN 325 MG TAB PO ONE (17:38)
[2025-04-30 18:01] VITALS: BP 128/77; TEMP 97.3; O2SAT 100
[2025-04-30 18:17] VITALS: BP 126/72; TEMP 97.8; O2SAT 100
[2025-04-30 19:07] VITALS: BP 130/80; TEMP 98.6; O2SAT 100
[2025-04-30 19:58] VITALS: BP 124/79; TEMP 98.6; O2SAT 100
[2025-04-30] MEDS: HEPARIN LOCK FLUSH 100 UNITS/ML 3 ML SYRINGE IV PRN (20:43)
[2025-04-30 20:45] VITALS: BP 140/83; TEMP 98.6; O2SAT 100
[2025-05-01] MEDS ORDERED: HEPARIN LOCK FLUSH 100 UNITS/ML 3 ML SYRINGE IV SCH (09:00)
== END 2025-04-30 20:25 | disposition home or self-care (01) ==
LOC: M ED 16:35
DX: R79.89 Other specified abnormal findings of blood chemistry (principal); C53.9 Malignant neoplasm of cervix uteri, unspecified; Z90.49 Acquired absence of other specified parts of digestive tract; Z88.8 Allergy status to other drugs, medicaments and biological substances
CPT/HCPCS: 36430; 99285; J1642; P9016

== ENCOUNTER → 2025-05-03 | Outpatient (CLI) | payer OTHER ==
[~2025-05-03] MED LIST changes: +PROHANCE 279.3MG/ML 15ML VIAL As Ordered ONE; +PROHANCE 279.3MG/ML 5ML VIAL As Ordered ONE
== END ==
LOC: M RAD 08:57
PROVIDERS: ATTEND General Practice
DX: C53.1 Malignant neoplasm of exocervix (principal)

== ENCOUNTER → 2025-05-06 | Outpatient (CLI) | payer OTHER ==
[~2025-05-06] VITALS: Ht 162.6 cm; Wt 125.8 kg
[~2025-05-06] MED LIST changes: -PROHANCE 279.3MG/ML 15ML VIAL As Ordered ONE; -PROHANCE 279.3MG/ML 5ML VIAL As Ordered ONE
[2025-05-06 09:14] VITALS: BP 136/82; O2SAT 97
== END ==
LOC: M PAL 09:01
PROVIDERS: ATTEND Physician Assistant
DX: Z51.5 Encounter for palliative care (principal); C53.9 Malignant neoplasm of cervix uteri, unspecified; C77.4 Secondary and unspecified malignant neoplasm of inguinal and lower limb lymph nodes; C78.7 Secondary malignant neoplasm of liver and intrahepatic bile duct; Z92.21 Personal history of antineoplastic chemotherapy; Z92.3 Personal history of irradiation